=== PATIENT | female | born 1985 | race Caucasian/White ===

== ENCOUNTER → 2018-07-27 11:59 | Outpatient (CLI) | payer OTHER, SELFPAY ==
[2018-07-27 10:51] VITALS: BMI 33.5
[2018-07-27 12:37] LABS: Absolute Neutrophil Count 6.1 X10^3/uL (2.0-7.7); Basophil# 0.03 X10^3/uL; Basophil% 0.3 % (0-1); Eosinophil# 0.08 X10^3/uL; Eosinophils% 0.9 % (0-5); Hemoglobin 14.1 g/dl (12.0-15.0); Lymphocyte % 21.9 % (19-41); Mean Corp Hgb Conc 33.6 g/gl (32-36); Mean Corpuscular Hgb 28.4 pg (27.0-32.0); Mean Corpuscular Volume 84.7 fL (81-99); Mean Platelet Vol. 8.5 fl (6.2-12.0); Monocyte# 0.51 X10^3/uL; Monocyte% 5.9 % (0-10); Neutrophil # 6.14 X10^3/uL (2.7-7.7); Neutrophil % 70.9 % (47-70); POSITIVE COUNT NO; POSITIVE DIFFERENTIAL NO; POSITIVE MORPHOLOGY NO; Platelet Count 374 K/mm3 (150-450); RBC Distribution Width CV 12.4 % (11.6-14.6); Red Blood Count 4.96 M/mm3 (4.2-5.4); White Blood Count 8.7 K/mm3 (4.4-11.0)
[2018-07-27 12:46] LABS: Protein, Urine (Random) 12.8 mg/dL (<11.9); Protein:Creat Ratio 149 mg/g CRE (0-200)
[2018-07-27 13:06] LABS: ALB/GLOB Ratio 0.8 RATIO (0.9-2.4); AST(SGOT) 12 U/L (15-37); Alanine Aminotransfer ALT/SGPT 18 U/L (13-56); Albumin, Serum 3.6 g/dL (3.2-5.0); Alkaline Phosphatase 87 U/L (45-117); Anion Gap 7 (5-15); BUN 9 mg/dL (7-18); BUN/Creat Ratio 15.8 RATIO (10-20); Calcium,Total 8.7 mg/dL (8.5-10.1); Chloride 105 mmol/L (98-107); Creatinine, Serum 0.57 mg/dL (0.55-1.02); EST Glomerular Filtration Rate 131 mL/min (>60); Est Glom Filt Rate - Afr Amer 159 mL/min (>60); Globulin 4.6 g/dL (2.2-4.2); Glucose 76 mg/dL (74-106); Potassium 3.7 mmol/L (3.5-5.1); Protein, Total 8.2 g/dL (6.4-8.2); Sodium Level 137 mmol/L (136-145)
[2018-07-27 13:53] LABS: HIV - WCH Non-Reactive (Nonreactive); Rubella IgG 316.9 IU/mL
[2018-07-27 15:28] LABS: Chlamydia Trachomatis by PCR Negative (Negative); Neisserai gonorrhoeae by PCR Negative (Negative); Probe Check PASS; Sample Adequacy Control PASS; Specimen Processing Control PASS
[2018-07-27 17:34] LABS: Chlamydia Trachomatis by PCR Negative (Negative); Neisserai gonorrhoeae by PCR Negative (Negative); Probe Check PASS; Sample Adequacy Control PASS; Specimen Processing Control PASS
[2018-07-28 14:39] LABS: HEPATITIS B SURFACE AG Negative (Negative)
[2018-07-29 03:31] LABS: Rapid Plasmin Reagin (RPR) NONREACTIVE (NONREACTIVE)
[2018-07-30 20:19] LABS: HPV APTIMA, High Risk Negative (Negative)
== END ==
PROVIDERS: Family Provider Nurse Practitioner; PCP Nurse Practitioner; Referring Provider Nurse Practitioner Women's Health; Visit Provider Nurse Practitioner Women's Health
DX: O16.9 Unspecified maternal hypertension, unspecified trimester (principal); Z12.4 Encounter for screening for malignant neoplasm of cervix; Z3A.00 Weeks of gestation of pregnancy not specified
CPT/HCPCS: 36415; 80053; 82570; 84156; 85025; 86592; 86703; 86762; 86850; 86900; 87086; 87340; 87491; 87591; 87624; 88175; G0145

== ENCOUNTER → 2018-08-05 15:56 | Outpatient (CLI) | payer OTHER, SELFPAY ==
[2018-07-27 10:51] VITALS: BMI 33.5
--- NOTE | 2018-08-05 16:00 | EKG12_ITS ---
Test Reason : FAMILY HX Blood Pressure : / mmHG Vent. Rate : 080 BPM Atrial Rate : 080 BPM P-R Int : 132 ms QRS Dur : 078 ms QT Int : 382 ms P-R-T Axes : 032 023 019 degrees QTc Int : 440 ms Normal sinus rhythm Normal ECG Confirmed by LEON TIRADO, YAHAIRA ([id number]), publication editor FAY GOODE ([id number]) on 08/08/2018 9:40:48 AM Referred By: Yary Mcpherson Confirmed By:YAHAIRA QUINTERO MD
--- OUTSIDE RECORDS SUMMARY | 2018-10-10 05:40 | XMS RPT_ITS ---
:1985 Author Organization OHIP Care Team Providers Name Role Phone Yary Mcpherson Attending Unavailable Yary Mcpherson Attending Unavailable Yary Mcpherson Referring Unavailable Peterson, Nakia LOAN OPERATIONS MANAGER-C Primary Care Unavailable Yary Mcpherson Attending Unavailable Yary Mcpherson Referring Unavailable Peterson, Nakia LOAN OPERATIONS MANAGER-C Primary Care Unavailable Demetrius Mason Attending Unavailable KyYary martínez Referring Unavailable Peterson, Nakia LOAN OPERATIONS MANAGER-C Primary Care Unavailable Yary Mcpherson Consulting Unavailable PROBLEMS PROBLEMS DATE TYPE CONDITION / CODE ATTENDING STATUS SOURCE 08/08/2018 Unknown I10 - Essential IsabellaSerafin mccormackril Active [facility] (primary) Community hypertension / Hospital I10(ICD-10) Repository 08/08/2018 Unknown Z34.00 - Encounter Demetrius Mason Active [facility] for supervision of [facility] normal first Hospital , Repository unspecified trimester / Z34.00(ICD-10) 07/27/2018 Unknown Z34.90 - Encounter Yary Mcpherson Active [place] for supervision of [facility] normal , Hospital unspecified, Repository unspecified trimester / Z34.90(ICD-10) PROCEDURES PROCEDURES No Procedure Records FoundRESULTS RESULTS 12 LEAD ELECTROCARDIOGRAM Observed: 08/08/2018 Status: F Source: [place] 9:41 AM [facility] REPOSITORY [facility] Cardiovascular Services [address] [place] [address] 12 Lead EKG 08/05/18 1605 MR#: [id number] Acct: [id number] Name: KATIE BUSBY Rep #: [id number] : 1985 33 From: Demetrius Mason MD Attending Dr: Yary Mcpherson NP Status: REG CLI Ordering Dr: Yary Mcpherson LOAN OPERATIONS MANAGER-C Date: 08/05/18 Location: [facility] Sex: F C Admitted: Test Reason : FAMILY HX Blood Pressure : / mmHG Vent. Rate : 080 BPM Atrial Rate : 080 BPM P-R Int : 132 ms QRS Dur : 078 ms QT Int : 382 ms P-R-T Axes : 032 023 019 degrees QTc Int : 440 ms Normal sinus rhythm Normal ECG Confirmed by DEMETRIUS MASON MD ([id number]), graphics editor FAY GOODE ([id number]) on 08/08/2018 9:40:48 AM Referred By: Yary Mcpherson Confirmed By:DEMETRIUS MASON MD 08/08/18 0940 Date Demetrius Mason MD CC: LOAN OPERATIONS MANAGER Nakia Peterson; MIGDALIA Mcpherson Signed INDUSTRIAL MECHANIC OFFICE VISIT Observed: 07/27/2018 Status: F Source: [place] REPORT 12:54 PM [facility] REPOSITORY [facility] [place] [address] [place] [address] OFFICE VISIT Date of Service: 07/27/18 MR#: [id number] Acct: [id number] Name: KATIE BUSBY Rep #: [id number] : 1985 Provider: MIGDALIA Mcpherson Age/Sex: 33/F [place] [facility] [place]: Signed Intake Vital Signs07/27/18 Height 5 ft 2 in 07/27/18 Weight: 183 lb 4 oz 07/27/18 Body Mass Index (BMI) 33.5 07/27/18 Blood Pressure 110/68 Intake Visit Reasons: NOB - LMP 05/19 Drilling Superintendent Required: No Accompanied by: friend Is patient in pain?: No Allergies No Known Allergies Allergy (Verified 07/27/18 10:42) Medications blood pressure monitor kit See Dose Instructions .ROUTE .MEDSUPPLY #1 ea 07/27/18 [Rx Confirmed 07/27/18] docosahexanoic acid 200 mg capsule mg PO cap 07/27/18 [History Confirmed 07/27/18] Last Menstral Period: 05/19/18 Zika: Zika virus screening: Negative : No PFSH PFSH Medical History Fibromyalgia (Chronic) IBS (irritable bowel syndrome) (Chronic) Psoriatic arthritis (Chronic) Surgical History H/O colonoscopy (Resolved) H/O esophagogastroduodenoscopy (Resolved) [place] teeth extracted (Resolved) Family History Sister CVA (cerebral vascular accident) Mother Myocardial infarction Father Irregular heart rate Social History Smoking Status: Light Smoker (<10/day) alcohol intake: never substance use type: does not use caffeine: Yes what type of physical activity do you participate in: none seatbelt use: always do you feel safe at home: Yes additional social history: - [employer] 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 Past history of hypertension and previously on lisinopril. Also history of fibromyalgia and psoriatic arthritis. Stopped all meds in January to attempt . OB Visit JENN Calculator Estimated Delivery Date 02/23/19 Based on LMP (certain) 05/19/18 Current WG 9w 6d Number 1 Expected Delivery Route/Plan Specific Issue/Plans flu vaccine: declines tdap vaccine: [] rhogam: [] LARC form signed: [] labor support person: Will pain management: [] cut cord/dad catch: [] : [] PP control planned: [] special requests: [] Initial Weight: Not Recorded Date Weight BP Urine PrFHR FuHt Pres MoCTX DilationFetal StVisit NoProviderComments E ot v te GA G Effac lucose ed Menstrual History Last Menstral Period: 05/19/18 Reported LMP: definite Normal amount/duration: Yes On hormonal BC at conception: No hCG+: 06/26/18 Antepartum Record Genetic Screening: Congenital Heart Defect: Other, Neural Tube Defect: Other, Hemoglobinopathy Or Carrier: Other, Cystic Fibrosis: Other, Chromosome Abnormality: Other, Hemophilia: Other, Intellectual Disability/Autism: Patient (half brother autistic), Recurrent Loss/Stillbirth: Other, Other Structural Defect: Other, Other Genetic Disease: Other, Maternal Metabolic Disorder: Other Infection History: Live with someone with TB or Exposed to TB: No, Patient or Partner has history of Genital Herpes: No, Rash or Viral illness since last mentrual period: No, Prior GBS-Infected child: No, History of STD: No, HIV Infection: No, History of Hepatitis: No, Recent travel outside of [place]: No, Concern for Hep exposure: No, Varicella immune: Yes (had vaccine) Medical History Medical History: Positive: Hypertension (no meds currently. Has in past), Auto-immune disorder (Psoriatic arthritis, fibromyagia), Depression/ depression (depression-no med currently), Negative: Diabetes, Heart disease, Kidney disease/UTI, Neurologic/epilepsy, Psychiatric, Hepatitis/liver disease, Varicosities/phlebitis, Thyroid dysfunction, Trauma/domestic violence, History of blood transfusions, D (Rh) Sensitized, Pulmonary (e.g.,TB,Asthma), Seasonal allergies, Drug/latex allergies/reactions, Breast, Real Time Analyst surgery, Operations/hospitalizations, Anesthetic complications, History of abnormal pap, Uterine anomaly/patricia, Infertility, Anti-retroviral treatment, Relevant family history, Other ROS Const Reports as per HPI Card Denies chest pain, Denies shortness of breath Resp Denies shortness of breath GI Denies change in stools Denies difficulty urinating, Denies abnormal vaginal bleeding, Denies vaginal odor, Denies vaginal itching, Denies vaginal discharge Exam Const General: cooperative, healthy appearing, well developed Nutritional Appearance: average body habitus, well nourished Orientation: oriented x3 Other: TV US per Dr. Isabel with CRL 23.6mm consistent with LMP JENN of 02/23/19. FHT 189 Neck Neck: normal visual inspection Neck mass: No Thyroid: thyroid normal Chest Chest palpation AND inspection: normal inspection of the chest Breast inspection: normal inspection of the breasts, normal inspection of the axillae Resp Effort AND Inspection: normal respiratory effort GI Inspection: normal to inspection Palpation: soft, nontender, no masses External Female Exam: normal external appearance, normal appearance of the urethra Urethra: normal appearance of the urethra Speculum Exam - Vagina: normal appearance of the vagina, normal vaginal discharge Speculum Exam - Cervix: normal appearance of the cervix, closed cervix, other (thin prep pap with reflex HPV, GCC collected) Bimanual Exam- Vagina AND Uterus: normal bimanual exam, uterine shape normal, uterine size normal (10 weeks) Bimanual Exam- Adnexa, other: normal adnexae, no adnexal masses, adnexae non-tender Skin General: no rashes or lesions noted, turgor normal Assessment AND Plan Problems 1. Encounter for supervision of normal first in first trimester Z34.01 Grav 1/0 JENN 02/23/19 Spouse Will 2. 9 weeks gestation of Z3A.09 considering NIPT, 3. Essential hypertension I10 Baseline EKG,CMP, Urine P/C ratio; daily BP-call >140/90 4. Tobacco smoking affecting in first trimester O99.331 Plan Patient oriented to practice and discussed care expectations and screenings. ACOG book offered to patient. labs plus CMP, urine protein creatinine ratio, EKG Daily home BP checks and call if >140/90 Counseled on stop smoking. Has decreased from 1 ppd to 5 cig per day. Genetic screening offered to patient and patient chose: checking with insurance RTO 2-[address] Isabel Orders Orders: Medications New: Coding Level of Care Code Off vis,new,level 4 Diagnoses Encounter for supervision of normal first in first trimester Z34.01 Trimester: first trimester 9 weeks gestation of Z3A.09 Weeks of gestation: 9 weeks Essential hypertension I10 Hypertension type: essential hypertension Tobacco smoking affecting in first trimester O99.331 Trimester: first trimester 07/27/18 1254 <Electronically signed by Yary LUEVANO> Date Yary LUEVANO Cosigner Signature: Date (if applicable) CC: PROTEIN+CREATININE Collected: Status: F Source: [place] RATIO,URINE 07/27/2018 12:22 PM [facility] REPOSITORY TYPE CODE TESTS RESULT OUT OF RANGE REFERENCE UNITS LAB L501.1200 NO RANGE EST. mg/dL Normal UR CREAT 85.90 LAB L501.1930 <11.9 mg/dL High 12.8 PROTEIN,UR.R AN. LAB L501.1940 0-200 mg/g CRE Normal PROT:CRE 149 RATIO Performed By: #### L501.0900 #### [facility] [address] [place], [address] CT/NG WCH BY PCR Collected: 07/27/2018 Status: F Source: [place] 12:22 PM [facility] REPOSITORY TYPE CODE TESTS RESULT OUT OF RANGE REFERENCE UNITS LAB L8200.2100 Negative Normal Chlam Negative Trac PCR LAB L8200.2200 Negative Normal NG by Negative PCR Performed By: #### L8200.2000 #### [facility] [address] [place], [address] Observed: 07/27/2018 Status: F Source: [place] CULTURE, URINE 12:22 PM [facility] REPOSITORY Urine Culture Culture exhibits no growth. Performed By: #### M100.0650 #### [facility] [address] [place], [address] CBC W/DIFF, AUTOMATED Collected: 07/27/2018 Status: F Source: [place] 12:07 PM [facility] REPOSITORY TYPE CODE TESTS RESULT OUT OF RANGE REFERENCE UNITS LAB L100.1000 4.4-11.0 K/mm3 Normal WBC 8.7 LAB L100.1200 4.2-5.4 M/mm3 Normal RBC 4.96 LAB L100.1300 12.0-15.0 g/dl Normal HGB 14.1 LAB L100.1400 37-47 % Normal HCT 42.0 LAB L100.1500 81-99 fL Normal MCV 84.7 LAB L100.1600 27.0-32.0 pg Normal MCH 28.4 LAB L100.1700 32-36 g/gl Normal MCHC 33.6 LAB L100.1810 11.6-14.6 % Normal RDW CV 12.4 LAB L100.1820 35.1-43.9 fl Normal RDW SD 38.0 LAB L100.1900 150-450 K/mm3 Normal PLT 374 LAB L100.2000 6.2-12.0 fl Normal MPV 8.5 LAB L100.2100 47-70 % High NEUT% 70.9 LAB L100.2200 19-41 % Normal LY% 21.9 LAB L100.2300 0-10 % Normal MONO% 5.9 LAB L100.2400 0-5 % Normal EO% 0.9 LAB L100.2500 0-1 % Normal BASO% 0.3 LAB L100.2550 0.0-0.9 % Normal IM GRAN % 0.100 Result Comment: IG% - Immature Granulocytes (promyelocytes, myelocytes and metamyelocytes) > 1% indicates that a LEFT SHIFT is Present. LAB L100.2620 2.0-7.7 X10 3/uL Normal Absolute Neut 6.1 LAB L100.2720 0.83-4.51 X10 3/ul Normal Absolute Lymph 1.90 Performed By: #### L100.0100 #### [facility] [address] [place], [address] COMPREHENSIVE METABOLIC Collected: 07/27/2018 Status: F Source: [place] [facility] 12:07 PM [facility] REPOSITORY TYPE CODE TESTS RESULT OUT OF RANGE REFERENCE UNITS LAB L501.0100 74-106 mg/dL Normal GLU 76 Result Comment: Please note revised GLUCOSE reference range effective 2017. LAB L501.1000 7-18 mg/dL Normal BUN 9 LAB L501.1100 0.55-1.02 mg/dL Normal CREAT,SERUM 0.57 Result Comment: The validity of the calculated GFR AND GFRAA in patients over 70 years has not been determined. Clinical correlation is essential. LAB L501.1110 >60 mL/min Normal EST GFR 131 Result Comment: Non- GFR Calc LAB L501.1115 >60 mL/min Normal EST GFR - AA 159 Result Comment: GFR Calc LAB L501.1300 10-20 RATIO Normal BUN/CRE 15.8 LAB L501.1500 6.4-8.2 g/dL T Normal PROT 8.2 LAB L501.1800 3.2-5.0 g/dL Normal ALB 3.6 LAB L501.1950 2.2-4.2 g/dL High GLOB 4.6 LAB L501.2000 0.9-2.4 RATIO Low A/G 0.8 LAB L501.2200 8.5-10.1 mg/dL CA Normal 8.7 LAB L501.4100 15-37 U/L Low AST 12 LAB L501.4305 45-117 U/L Normal ALK P 87 LAB L501.4405 13-56 U/L Normal ALT 18 LAB L501.4600 0.20-1.00 mg/dL Low T BILI 0.10 LAB L501.5300 136-145 mmol/L NA Normal 137 LAB L501.5600 3.5-5.1 mmol/L K Normal 3.7 LAB L501.5900 98-107 mmol/L CL Normal 105 LAB L501.6100 21.0-32.0 mmol/L Normal CO2 25.0 LAB L501.6200 5-15 Normal GAP 7 Performed By: #### L500.4050 #### [facility] [address] [place], [place], [address] RUBELLA IGG Collected: 07/27/2018 Status: F Source: [place] 12:07 PM [facility] REPOSITORY TYPE CODE TESTS RESULT OUT OF RANGE REFERENCE UNITS LAB L509.4000 IU/mL Normal Rubella IgG 316.9 Result Comment: Antibody results Interpretation of Immune Status < 5 IU/ml Presumed Non-immune 5 - < 10 IU/ml Equivocal > or = 10 IU/ml Presumed Immune Performed By: #### L509.4000, L3890.6005 #### [facility] [address] [place], [address] HIV - WCH Collected: 07/27/2018 Status: F Source: [place] 12:07 PM [facility] REPOSITORY TYPE CODE TESTS RESULT OUT OF RANGE REFERENCE UNITS LAB L3890.6005 Nonreactive Normal HIV - WCH Non-Reactive Performed By: #### L509.4000, L3890.6005 #### [facility] [address] [facility] [address] TYPE AND SCREEN Collected: 07/27/2018 Status: F Source: [place] 12:07 PM [facility] REPOSITORY Order Comment: Reason for Type AND Screen/Red Cells: TYPE CODE TESTS RESULT OUT OF RANGE REFERENCE UNITS LAB B10.0800 O Normal BLOOD TYPE GEL POSITIVE LAB B100.4000 Normal Antibody NEGATIVE Screen Performed By: #### B101.7450 #### [facility] [place], [place], [address] HEPATITIS B SURFACE Collected: 07/27/2018 Status: F Source: [place] AG 12:07 PM [facility] REPOSITORY TYPE CODE TESTS RESULT OUT OF RANGE REFERENCE UNITS LAB L3100.0400 Negative Normal HB Negative SURF AG Result Comment: Performed at: - [facility] [id number] Oil Treater: Martir Zhu PhD, Phone: [phone] Performed By: #### L3100.0390 #### [facility] (refer to report for specific site) refer to report for address and phone number RAPID PLASMIN REAGIN Collected: 07/27/2018 Status: F Source: [place] (RPR) 12:07 PM [facility] REPOSITORY TYPE CODE TESTS RESULT OUT OF REFERENCE UNITS RANGE LAB L700.5000 NONREACTIVE NONREACTIVE Normal RPR Performed By: #### L700.5000 #### [facility] [place], [address] CT/NG WCH BY PCR Collected: 07/27/2018 Status: F Source: [place] 10:00 AM [facility] REPOSITORY TYPE CODE TESTS RESULT OUT OF RANGE REFERENCE UNITS LAB L8200.2100 Negative Normal Chlam Negative Trac PCR LAB L8200.2200 Negative Normal NG by Negative PCR Performed By: #### L8200.2000 #### [facility] [address] [place], [address] Observed: 07/27/2018 Status: P Source: [place] CULTURE, URINE 10:00 AM [facility] REPOSITORY Urine Culture Culture exhibits no growth. Performed By: #### M100.0650 #### [facility] [address] [place], [address] PAP IG HPV APTIMA Collected: 07/27/2018 Status: F Source: [place] 16/18,45 10:00 AM [facility] REPOSITORY Order Comment: CYTOLOGY INFORMATION: - CLINICAL INFORMATION: - DATE LMP/MENOPAUSE: - COLLECTION VIAL: Thin Prep Vial - SIDE LASTER TACK SOURCE: CERVICAL - COLLECTION TECHNIQUE: BRUSH/SPATULA Specimen Comment: [id number] Specimen Comment: Source.............Cervix Specimen Comment: Other.............. Specimen Comment: No. of containers..01 ThinPrep Vial TYPE CODE TESTS RESULT OUT OF RANGE REFERENCE UNITS LAB L7400.0800 . Normal DIAGN Comment Result Comment: NEGATIVE FOR INTRAEPITHELIAL LESION AND MALIGNANCY. LAB L7400.0900 . Normal ADEQ Comment Result Comment: Satisfactory for evaluation. No endocervical component is identified. An endocervical component is not commonly seen in the patient. LAB L7400.1400 . Normal PERFORM Comment Result Comment: Whitney Brown, [facility] (ASCP) LAB L7400.2575 . Normal TEST METHOD Comment Result Comment: This liquid based ThinPrep(R) pap test was screened with the use of an image guided system. LAB L7400.2600 . Normal . COMM LAB L7400.2700 . Normal PAPSMR Comment Result Comment: The Pap smear is a screening test designed to aid in the detection of premalignant and malignant conditions of the uterine cervix. It is not a diagnostic procedure and should not be used as the sole means of detecting cervical cancer. Both false-positive and false-negative reports do occur. LAB L7400.2760 Negative Normal HPV APTIMA, Negative HR Result Comment: This test detects fourteen high-risk HPV types (16/18/31/33/35/39/45/ 51/52/56/58/59/66/68) without differentiation. Performed at: - [facility] [id number] Oil Treater: Blanca Ron MD, Phone: [phone] Performed at: = - [facility] [address] [id number] Oil Treater: Blanca Ron MD, Phone: [phone] Performed By: #### L7400.0280 #### [facility] (refer to report for specific site) refer to report for address and phone number ALLERGIES ALLERGIES DATE TYPE / CODE NAME / CODE REACTION SEVERITY SOURCE 07/27/2018 Drug No Known Unknown [facility] Allergy/4160 Allergies/F00 [facility] [address]90(SNOMED 9946731(RXNOR Repository CT) M) ENCOUNTERS ENCOUNTERS ADMIT/DISCHARGE ACCOUNT ADMITTING ENCOUNTER LOCATION SOURCE NUMBER CLASS 08/05/2018 [id number] Ambulatory BMSBuilding:B [place] 4 MS.CF[facility] Repository 08/05/2018 [id number] Ambulatory [facility] [place] [address] [facility] ing:[facility] Repository 07/27/2018 [id number] Ambulatory [facility] [place] [facility] ing:PAVLAB Repository 07/27/2018/ [id number] Ambulatory BMSBuilding:B [facility] 9 1 [facility] Repository PAYERS PAYERS ENCOUNTER GUARANTOR PAYER SUBSCRIBER SOURCE 08/05/2018 KATIE Braxton [id number] Insurance:MEDICAL KLEINDOB: [facility] [id number]: Repository [id number]: [phone] [id number] [phone] () Date:[id number] [address] [place], [place] [address]WP: 08/05/2018 Secondary NOT GIVENUNK [facility] Insurance:SELF PAY [facility] Number: Effective Repository Date:2018-08-05 08/05/2018 KATIE Slaughter Primary KATHY Braxton [id number] Insurance:MEDICAL KLEINDOB: [facility] [id number] Number: Repository [id number]: 330 [id number] [phone] (HP) Date:4474-07-59HT [address] [address]CW: 08/05/2018 Secondary NOT GIVENUNK [place] Insurance:SELF PAY [facility] Number: Effective Repository Date:2018-08-05 07/27/2018 KATIE Slaughter Primary KATHY Braxton [id number] Insurance:MEDICAL KLEINDOB: [facility] [id number] Number: Repository [id number]: 330 [id number] [phone] () Date:[id number] [address] [address]WW: 07/27/2018 Secondary NOT GIVENUNK [place] Insurance:SELF PAY [facility] Number: Effective Repository Date:2018-07-27 07/27/2018 KATIE Slaughter Primary KATHY Braxton [id number] Insurance:MEDICAL KLEINDOB: [facility] [id number] Number: Repository [id number]: 330 [id number] [phone] (HP) Date:4232-44-00OW [address] [address]JD: 07/27/2018 Secondary NOT GIVENUNK [place] Insurance:SELF PAY [facility] Number: Effective Repository Date:2018-07-27
== END ==
PROVIDERS: Family Provider Nurse Practitioner; PCP Nurse Practitioner; Referring Provider Nurse Practitioner Women's Health; Visit Provider Nurse Practitioner Women's Health
DX: O16.9 Unspecified maternal hypertension, unspecified trimester (principal); Z3A.00 Weeks of gestation of pregnancy not specified
CPT/HCPCS: 93005

== ENCOUNTER → 2018-12-02 15:37 | Outpatient (CLI) | payer OTHER, SELFPAY ==
[2018-12-02 15:25] VITALS: BMI 34.0
[2018-12-02 16:23] LABS: Absolute Lymphocyte Count 1.47 X10^3/ul (0.83-4.51); Absolute Neutrophil Count 5.6 X10^3/uL (2.0-7.7); Basophil# 0.01 X10^3/uL; Basophil% 0.1 % (0-1); Eosinophil# 0.08 X10^3/uL; Hematocrit 34.8 % (37-47); Hemoglobin 11.7 g/dl (12.0-15.0); Lymphocyte # 1.47 X10^3/ul (4.0); Lymphocyte % 19.2 % (19-41); Mean Corp Hgb Conc 33.6 g/gl (32-36); Mean Corpuscular Volume 83.3 fL (81-99); Mean Platelet Vol. 8.5 fl (6.2-12.0); Monocyte# 0.51 X10^3/uL; Monocyte% 6.7 % (0-10); Neutrophil # 5.57 X10^3/uL (2.7-7.7); Neutrophil % 72.9 % (47-70); Platelet Count 355 K/mm3 (150-450); RBC Distribution Width CV 13.2 % (11.6-14.6); RBC Distribution Width SD 39.4 fl (35.1-43.9); Red Blood Count 4.18 M/mm3 (4.2-5.4); White Blood Count 7.7 K/mm3 (4.4-11.0)
[2018-12-02 16:27] LABS: POSITIVE COUNT NO; POSITIVE DIFFERENTIAL NO; POSITIVE MORPHOLOGY NO
[2018-12-02 17:19] LABS: Glucose Challenge Gest 1H 50g 131 mg/dL (70-140)
== END ==
PROVIDERS: Family Provider Nurse Practitioner; PCP Nurse Practitioner; Referring Provider Obstetrics & Gynecology; Visit Provider Obstetrics & Gynecology
DX: Z34.93 Encounter for supervision of normal pregnancy, unspecified, third trimester (principal)
CPT/HCPCS: 36415; 82950; 85025

== ENCOUNTER 2019-01-04 11:20 | Inpatient (IN) | payer OTHER, SELFPAY ==
[2019-01-04 11:23] VITALS: BMI 34.0
[2019-01-04 11:28] VITALS: BMI 36.2
[2019-01-04 11:57] LABS: Protein:Creat Ratio 217 mg/g CRE (0-200)
[2019-01-04 12:14] LABS: Hematocrit 37.4 % (37-47); Hemoglobin 12.7 g/dl (12.0-15.0); Mean Corpuscular Volume 82.4 fL (81-99); Mean Platelet Vol. 9.6 fl (6.2-12.0); Platelet Count 325 K/mm3 (150-450); RBC Distribution Width CV 13.7 % (11.6-14.6); RBC Distribution Width SD 39.5 fl (35.1-43.9); Red Blood Count 4.54 M/mm3 (4.2-5.4); White Blood Count 10.2 K/mm3 (4.4-11.0)
[2019-01-04 12:17] LABS: Scan Indicated on CBC? Y/N NO
[2019-01-04 12:27] LABS: Prothrombin Time (Protime)PT. 12.6 SECONDS (11.7-14.9)
[2019-01-04 12:30] LABS: AST(SGOT) 19 U/L (15-37); Alanine Aminotransfer ALT/SGPT 19 U/L (13-56); Creatinine, Serum 0.62 mg/dL (0.55-1.02); EST Glomerular Filtration Rate 118 mL/min (>60); Est Glom Filt Rate - Afr Amer 143 mL/min (>60); Estimated Creatinine Clearance 103.98 ml/min; Uric Acid 5.3 mg/dL (2.6-6.0)
[2019-01-04 12:42] LABS: Partial Thromboplast Time 29.7 Seconds (24.1-36.2)
[2019-01-04] MEDS: Betamethasone/Betamethasone 30 MG/5 ML Vial 12 MG IM (13:10)
[2019-01-04] MEDS: Labetalol 200 MG Tablet PO ×2 (13:15→22:09)
[2019-01-04] MEDS: Magnesium Sulfate 20 GM/500 ML BAG IV ×2 (13:33→22:16)
[2019-01-04 15:03] LABS: Group B Strep DNA By PCR Negative (Negative); Internal Control PASS; Probe Check PASS; Specimen Processing Control PASS
--- NOTE | 2019-01-04 17:36 | HP.PCM_ITS ---
- Problem List (1) Severe preeclampsia Status: Acute (2) Supervision of high risk , antepartum Status: Acute Comment: PRR JENN 02/23/19 boy Phi Spouse Will (3) Anxiety Status: Acute Comment: declined meds, encouraged counseling (4) Tobacco smoking affecting Status: Acute Qualifiers: (5) Psoriatic arthritis Status: Acute (6) Hypertension Status: Chronic Qualifiers: Comment: Baseline labs nl. home bp monitoring, discussed and plan growth us at 32 weeks and weekly nsts from 36 weeks on and weekly mat 36 weeks on. deliver at 39 weeks. change if elevated bps. 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 Anatomy US normal History Date of Admission: 01/04/19 Final JENN: 02/23/19 Gestational age: 32 Weeks and 6 Days History of this : This is a 33 year-old, , at 32w6d weeks gestational age presents with severely elevated blood pressures. Patient has a history of chronic hypertension that has not require any medical intervention. Blood pressures have been normal throughout the and then today at her routine visit she had severely elevated blood pressures. Patient was admitted to labor and delivery and several pressures were taken and noted to be severely elevated and IV labetalol was given 20, 40, and then 80 mg which then controlled blood pressures. 200 mg p.o. labetalol were given for baseline management. All labs are within normal limits and urine is negative for protein.. Medical History: Medical History (Last Reviewed 01/04/19 @ 11:05 by Irene Christiansen) Fibromyalgia M79.7 IBS (irritable bowel syndrome) K58.9 Psoriatic arthritis L40.50 Surgical History: Surgical History (Last Reviewed 01/04/19 @ 11:05 by Irene Christiansen) H/O colonoscopy Z98.890 H/O esophagogastroduodenoscopy Z98.890 [place] teeth extracted K08.409 Allergies No Known Allergies Allergy (Verified 01/04/19 11:04) Home Medications: Home Medications blood pressure monitor kit See Dose Instructions .ROUTE .MEDSUPPLY #1 ea 0 07/27/18 docosahexanoic acid 200 mg capsule mg PO cap 07/27/18 citalopram 20 mg tablet 20 mg PO DAILY #30 tab 09/16/18 [place] 1 tab PO DAILY 01/04/19 Smoking Status: Light Smoker (<10/day) Alcohol: None Number of Fetus(es): 1 Heart Tracin moderate variability reactive cat I tracing toco no contractions History Past Pregnancies: Past Pregnancies Delivery Date Name GA/Weeks Outcome Route Weight Gender Labor Length Anesthesia Delivery Location Provider FOB Labs: Mom's Current Diagnoses Essential (primary) hypertension 01/04/19 Mom[facility] Microbiology 01/04/19 Unknown Genital vaginal Group B Streptococcus Culture - Pending Mom[facility] Labs & Results 01/04/19 01/04/19 01/04/19 11:36 11:55 11:55 WBC 10.2 RBC 4.54 Hgb 12.7 Hct 37.4 MCV 82.4 MCH 28.0 MCHC 34.0 RDW 13.7 RDW Differential 39.5 Plt Count 325 MPV 9.6 PT 12.6 INR 1.0 APTT 29.7 Creatinine Estim Creat Clear Calc Est GFR (MDRD) Af Amer Est GFR (MDRD) Non-Af Uric Acid AST ALT U Random Total Protein 33.0 H Urine Creatinine 152.00 Protein/Creatinin Ratio 217 H Group B Strep DNA Specimen Comment 01/04/19 01/04/19 11:55 12:23 WBC RBC Hgb Hct MCV MCH MCHC RDW RDW Differential Plt Count MPV PT INR APTT Creatinine 0.62 Estim Creat Clear Calc 103.98 Est GFR (MDRD) Af Amer 143 Est GFR (MDRD) Non-Af 118 Uric Acid 5.3 AST 19 ALT 19 U Random Total Protein Urine Creatinine Protein/Creatinin Ratio Group B Strep DNA Negative Specimen Comment Not Reportable Social History Smoking Status Light Smoker (<10/day) Review of Systems Constitutional: Denies: Fever, Malaise Eyes: Denies: Blurred vision, Vision Change HEENT: Denies: Head Aches, Visual Changes Cardiovascular: Denies: Chest Pain, Palpitations Respiratory: Denies: Cough, Shortness of Breath, Wheezing Gastrointestinal: Denies: Abdominal Pain, Diarrhea, Nausea, Vomiting Genitourinary: Denies: Dysuria, Hematuria Musculoskeletal: Denies: Joint Pain, Muscle pain Skin: Denies: Lesions, Rash Neurological: Denies: Blurred vision, Focal weakness, Headaches Psychiatric: Denies: Anxiety, Depression Endocrine: Denies: Heat/ Cold Intolerance Hematologic/ Lymphatic: Denies: Easy Bruising, Easy Bleeding Physical Exam General: Alert, Cooperative, No apparent distress HEENT: Atraumatic, Normocephalic. Negative for: Thyromegaly, Lymphadenopathy Cardiovascular: Regular rate Lungs: Normal air movement Abdomen: Soft, Non Tender, Gravid Neurological: Deep Tendon Reflexes 2+/4 and Symmetrical, Neuro grossly intact. Negative for: Clonus [employer]: Normal external genitalia. Negative for: Vulvar lesions Estimated gestational size: Appropriate for gestational size Assessment/Plan All Active Problems (Last Reviewed 01/04/19 @ 11:05 by Irene Christiansen) Severe preeclampsia (Acute) Supervision of high risk , antepartum (Acute) Anxiety (Acute) Tobacco smoking affecting (Acute) Psoriatic arthritis (Acute) Fibromyalgia (Acute) (Acute) Electrocardiogram showing normal sinus rhythm (Resolved) Supervision of normal first (Resolved) This is a 33 year-old, at 32w6d weeks gestational age with severe preeclampsia or possible exacerbation of chronic hypertension 1. Continue labetalol 200 mg twice daily and magnesium 2 g an hour, monitor blood pressures and will discontinue magnesium after 48 hours. Follow daily labs 2. Prematurity?status post Celestone today and will repeat dose tomorrow. 3. Growth ultrasound ordered for tomorrow
--- NOTE | 2019-01-05 05:00 | NURSING ---
24hr urine started.
[2019-01-05 05:25] LABS: Hemoglobin 11.4 g/dl (12.0-15.0); Mean Corp Hgb Conc 33.5 g/gl (32-36); Mean Corpuscular Hgb 27.7 pg (27.0-32.0); Mean Corpuscular Volume 82.5 fL (81-99); Mean Platelet Vol. 9.9 fl (6.2-12.0); Platelet Count 312 K/mm3 (150-450); RBC Distribution Width CV 13.5 % (11.6-14.6); RBC Distribution Width SD 39.2 fl (35.1-43.9); Red Blood Count 4.12 M/mm3 (4.2-5.4); White Blood Count 11.5 K/mm3 (4.4-11.0)
[2019-01-05 05:27] LABS: Scan Indicated on CBC? Y/N NO
[2019-01-05 05:44] LABS: ALB/GLOB Ratio 0.5 RATIO (0.9-2.4); AST(SGOT) 18 U/L (15-37); Alanine Aminotransfer ALT/SGPT 18 U/L (13-56); Albumin, Serum 2.3 g/dL (3.2-5.0); Alkaline Phosphatase 111 U/L (45-117); Anion Gap 12 (5-15); BUN 9 mg/dL (7-18); Calcium,Total 8.1 mg/dL (8.5-10.1); Chloride 104 mmol/L (98-107); Creatinine, Serum 0.75 mg/dL (0.55-1.02); EST Glomerular Filtration Rate 96 mL/min (>60); Est Glom Filt Rate - Afr Amer 116 mL/min (>60); Estimated Creatinine Clearance 85.96 ml/min; Globulin 4.6 g/dL (2.2-4.2); Glucose 107 mg/dL (74-106); Potassium 4.6 mmol/L (3.5-5.1); Protein, Total 6.9 g/dL (6.4-8.2); Sodium Level 137 mmol/L (136-145)
[2019-01-05] MEDS: Magnesium Sulfate 20 GM/500 ML BAG IV ×2 (09:09→18:41)
[2019-01-05] MEDS: Labetalol 200 MG Tablet PO ×2 (09:32→22:38)
--- NOTE | 2019-01-05 09:33 | NURSING ---
pt has gone to ultrasound and has returned
--- NOTE | 2019-01-05 10:33 | PN.OBGYN_ITS ---
Patient Problems: Active and Suspected Problems (Last Reviewed 01/04/19 @ 11:05 by Irene Christiansen) Severe preeclampsia (Acute) Subjective: patient stable no SULLIVAN BV N V tolerating po, feels dizzy on the magenesium. less anxious today. no VB LOF good FM no regular ctx Objective: fht 130 moderate variability reactive no decelerations category I tracing [place]: no regular - Physical Exam General: Alert, Oriented x3 Cardiovascular: Regular rate Abdomen: Soft, Non Tender, Gravid Extremities: Edema, - - no clonus Neurological: Deep Tendon Reflexes 2+/4 and Symmetrical Weight: 198 lb Body Mass Index (BMI) 36.2 Intake and Output for Last 24 Hours 01/03/19 01/04/19 01/05/19 23:59 23:59 23:59 Intake Total 100 / 100 Balance 100 / 100 Laboratory Tests Past 24 Hrs 01/04/19 01/04/19 01/04/19 11:36 11:55 11:55 WBC 10.2 RBC 4.54 Hgb 12.7 Hct 37.4 MCV 82.4 MCH 28.0 MCHC 34.0 RDW 13.7 RDW Differential 39.5 Plt Count 325 MPV 9.6 PT 12.6 INR 1.0 APTT 29.7 Sodium Potassium Chloride Carbon Dioxide Anion Gap BUN Creatinine Estim Creat Clear Calc Est GFR (MDRD) Af Amer Est GFR (MDRD) Non-Af BUN/Creatinine Ratio Glucose Uric Acid Calcium Total Bilirubin AST ALT Alkaline Phosphatase Total Protein Albumin Globulin Albumin/Globulin Ratio U Random Total Protein 33.0 H Urine Creatinine 152.00 Protein/Creatinin Ratio 217 H Group B Strep DNA Specimen Comment 01/04/19 01/04/19 01/05/19 11:55 12:23 05:00 WBC RBC Hgb Hct MCV MCH MCHC RDW RDW Differential Plt Count MPV PT INR APTT Sodium 137 Potassium 4.6 Chloride 104 Carbon Dioxide 21.0 Anion Gap 12 BUN 9 Creatinine 0.62 0.75 Estim Creat Clear Calc 103.98 85.96 Est GFR (MDRD) Af Amer 143 116 Est GFR (MDRD) Non-Af 118 96 BUN/Creatinine Ratio 12.0 Glucose 107 H Uric Acid 5.3 Calcium 8.1 L Total Bilirubin 0.20 AST 19 18 ALT 19 18 Alkaline Phosphatase 111 Total Protein 6.9 Albumin 2.3 L Globulin 4.6 H Albumin/Globulin Ratio 0.5 L U Random Total Protein Urine Creatinine Protein/Creatinin Ratio Group B Strep DNA Negative Specimen Comment Not Reportable 01/05/19 05:00 WBC 11.5 H RBC 4.12 L Hgb 11.4 L Hct 34.0 L MCV 82.5 MCH 27.7 MCHC 33.5 RDW 13.5 RDW Differential 39.2 Plt Count 312 MPV 9.9 PT INR APTT Sodium Potassium Chloride Carbon Dioxide Anion Gap BUN Creatinine Estim Creat Clear Calc Est GFR (MDRD) Af Amer Est GFR (MDRD) Non-Af BUN/Creatinine Ratio Glucose Uric Acid Calcium Total Bilirubin AST ALT Alkaline Phosphatase Total Protein Albumin Globulin Albumin/Globulin Ratio U Random Total Protein Urine Creatinine Protein/Creatinin Ratio Group B Strep DNA Specimen Comment Medical Necessity - Tobacco Use Smoking Status: Light Smoker (<10/day) Assessment/Plan All Active Problems (Last Reviewed 01/04/19 @ 11:05 by Irene Christiansen) Severe preeclampsia (Acute) Supervision of high risk , antepartum (Acute) Anxiety (Acute) Tobacco smoking affecting (Acute) Psoriatic arthritis (Acute) Fibromyalgia (Acute) (Acute) Electrocardiogram showing normal sinus rhythm (Resolved) Supervision of normal first (Resolved) This is a 33 year-old, at 33w0d weeks gestational age with severe preeclampsia or possible exacerbation of chronic hypertension 1. Continue labetalol 200 mg twice daily and magnesium 2 g an hour, monitor blood pressures and will discontinue magnesium after 48 hours. Follow daily labs 2. Prematurity?status post Celestone yesterday and will repeat dose today. 3. Growth ultrasound reassuring, CFM and daily NST
[2019-01-05] MEDS: Betamethasone/Betamethasone 30 MG/5 ML Vial 12 MG IM (16:11)
--- NOTE | 2019-01-05 17:41 | US_ITS ---
STUDY: SECOND AND THIRD TRIMESTER OBSTETRICAL ULTRASOUND - LIMITED REASON FOR EXAM: Female, 33 years old. Routine survey. Hypertension. LMP: May 19, 2018. PRIOR ULTRASOUND: None. TECHNIQUE: Transabdominal and Transvaginal TECHNICAL QUALITY: Limited. Examination limited due to patient's body habitus. FINDINGS: There is a single intrauterine fetus. The fetus is in a breech presentation. There is demonstrated cardiac activity with a heart rate of 123 bpm. There is a normal amniotic fluid volume. The largest amniotic fluid pocket measures 3.8 cm. The amniotic fluid index (ALEXIS) is 9.4 cm. The placenta is anterior in location and is not low lying. There are Grade 2 placental changes. The cervix measures 3.5 cm in length. Fluid is seen within the endometrial canal. BIOMETRY: BPD: 7.96 cm: 32 weeks, 0 days HC: 29.5 cm: 32 weeks, 5 days AC: 29.19 cm: 33 weeks, 2 days FL: 6.23 cm: 32 weeks, 2 days Age by LMP: 33 weeks, 0 days. JENN by LMP: February 23, 2019. age by current US: 32 weeks, 4 days. JENN by current US: February 26, 2019. Estimated weight: 2041 grams, +/- 298 grams, 33 percentile. Gender: Indeterminant US/OB Limited With Biometrics IMPRESSION: Single live intrauterine gestation with a mean gestational age of 32 weeks and 4 days. A small amount of fluid is seen in the endocervical canal. Electronically Signed: Khang Rivera, at 9:17 EDT , Service support ,
[2019-01-06 05:43] LABS: ALB/GLOB Ratio 0.5 RATIO (0.9-2.4); AST(SGOT) 14 U/L (15-37); Alanine Aminotransfer ALT/SGPT 16 U/L (13-56); Albumin, Serum 2.5 g/dL (3.2-5.0); Alkaline Phosphatase 112 U/L (45-117); Anion Gap 13 (5-15); BUN 14 mg/dL (7-18); BUN/Creat Ratio 19.4 RATIO (10-20); Calcium,Total 7.4 mg/dL (8.5-10.1); Chloride 104 mmol/L (98-107); Creatinine, Serum 0.72 mg/dL (0.55-1.02); EST Glomerular Filtration Rate 100 mL/min (>60); Est Glom Filt Rate - Afr Amer 121 mL/min (>60); Estimated Creatinine Clearance 89.54 ml/min; Globulin 4.6 g/dL (2.2-4.2); Glucose 106 mg/dL (74-106); Potassium 4.5 mmol/L (3.5-5.1); Protein, Total 7.1 g/dL (6.4-8.2); Sodium Level 137 mmol/L (136-145)
[2019-01-06] MEDS: Magnesium Sulfate 20 GM/500 ML BAG IV (06:06)
[2019-01-06 06:07] LABS: Creat.Clear Total Volume 3250 mL; Creatinine Clearance 114 ml/min (100-200); Creatinine Serum Creat 0.7 mg/dL (0.6-1.0); Creatinine Urine 36.2 mg/dL (NO RANGE EST.); EST Glomerular Filtration Rate 100 mL/min (>60); Est Glom Filt Rate - Afr Amer 121 mL/min (>60)
[2019-01-06 06:11] LABS: 24 Hour Urine Protein 640.2 mg/24HR (<150 MG/24HR); 24HR. UA Prot. Total Volume 3250 mL; 24HR. Urine Creatinine 1.16 g/24 HR (0.70-1.90); Urine Protein (24 Hour) 19.7 mg/dL (<11.9)
[2019-01-06] MEDS: Labetalol 200 MG Tablet PO ×2 (10:42→21:29)
--- NOTE | 2019-01-06 16:27 | PCM.PN.OB ---
Patient Problems: Active and Suspected Problems (Last Reviewed 01/04/19 @ 11:05 by Irene Christiansen) Severe preeclampsia (Acute) Subjective: denies any SULLIVAN BV N V no vb lof good fm no regular ctx Objective: fht 130-140 moderate variability reactive no decelerations category I tracing [place]: no regular - Physical Exam General: Alert, Oriented x3 HEENT: Atraumatic, Normocephalic Lungs: Clear to auscultation, Normal air movement Cardiovascular: Regular rate Abdomen: Soft, Non Tender, Gravid Extremities: Edema Neurological: Deep Tendon Reflexes 2+/4 and Symmetrical, Clonus - no clonus Weight: 198 lb Body Mass Index (BMI) 36.2 Intake and Output for Last 24 Hours 01/04/19 01/05/19 01/06/19 23:59 23:59 23:59 Intake Total 100 / 100 1180 / 1180 932 / 932 Output Total 1075 / 1075 1375 / 1375 Balance 100 / 100 105 / 105 -443 / -443 Laboratory Tests Past 24 Hrs 01/06/19 01/06/19 01/06/19 05:05 05:05 05:05 Sodium 137 Potassium 4.5 Chloride 104 Carbon Dioxide 20.0 L Anion Gap 13 BUN 14 Creatinine 0.72 0.7 Estim Creat Clear Calc 89.54 Est GFR (MDRD) Af Amer 121 121 Est GFR (MDRD) Non-Af 100 100 BUN/Creatinine Ratio 19.4 Glucose 106 Calcium 7.4 L Total Bilirubin 0.10 L AST 14 L ALT 16 Alkaline Phosphatase 112 Total Protein 7.1 Albumin 2.5 L Globulin 4.6 H Albumin/Globulin Ratio 0.5 L Urine Collection Time 24.0 24.0 Ur Collection Duration 24.0 Urine Total Volume 3.20 Timed Urine Volume 3250 3250 Urine Creatinine 36.2 35.60 Ur Creatinine 24 Hour 1.16 Creatinine Clearance 114 Ur Total Protein 24 Hr 640.2 H Urine Total Protein 19.7 H Medical Necessity - Tobacco Use Smoking Status: Light Smoker (<10/day) Assessment/Plan All Active Problems (Last Reviewed 01/04/19 @ 11:05 by Irene Christiansen) Severe preeclampsia (Acute) Supervision of high risk , antepartum (Acute) Anxiety (Acute) Tobacco smoking affecting (Acute) Psoriatic arthritis (Acute) Fibromyalgia (Acute) (Acute) Electrocardiogram showing normal sinus rhythm (Resolved) Supervision of normal first (Resolved) This is a 33 year-old, at 33w0d weeks gestational age with severe preeclampsia or possible exacerbation of chronic hypertension 1. Continue labetalol 200 mg twice daily and magnesium 2 g an hour, monitor blood pressures and will discontinue magnesium after 48 hours. Follow daily labs 2. Prematurity?status post Celestone yesterday and will repeat dose today. 3. Growth ultrasound reassuring, CFM and daily NST
[2019-01-07] MEDS: Mag Hydrox/Al Hydrox/Simeth 30 ML UDC PO (03:56)
[2019-01-07] MEDS: hydrOXYzine PAM 25 MG Capsule 50 MG PO (03:56)
--- NOTE | 2019-01-07 03:59 | PCM.PN.OB ---
Patient Problems: Active and Suspected Problems (Last Reviewed 01/04/19 @ 11:05 by Irene Christiansen) Severe preeclampsia (Acute) Subjective: patient evaluated due to shortness of breath and chest tightness. Things start throughout the day today but worsened tonight where it is difficult to lay down. she co her upper body feeling tight and achy and she is having worsening heartburn. symptoms are worse laying down. pulse ox is 94-97% on room air. HR 56-60 bp 156/75. patient feeling anxious. she has been up ambulating all day, has not been sleeping well tonight. - Physical Exam General: Alert, Cooperative HEENT: Atraumatic, Normocephalic Lungs: Clear to auscultation, Normal air movement, No rhonchi, No wheeze, No rales Cardiovascular: Normal S1, Normal S2, No murmurs, Bradycardic Weight: 198 lb Body Mass Index (BMI) 36.2 Intake and Output for Last 24 Hours 01/05/19 01/06/19 01/07/19 23:59 23:59 23:59 Intake Total 1180 / 1180 932 / 932 Output Total 1075 / 1075 1375 / 1375 Balance 105 / 105 -443 / -443 Laboratory Tests Past 24 Hrs 01/06/19 01/06/19 01/06/19 05:05 05:05 05:05 Sodium 137 Potassium 4.5 Chloride 104 Carbon Dioxide 20.0 L Anion Gap 13 BUN 14 Creatinine 0.72 0.7 Estim Creat Clear Calc 89.54 Est GFR (MDRD) Af Amer 121 121 Est GFR (MDRD) Non-Af 100 100 BUN/Creatinine Ratio 19.4 Glucose 106 Calcium 7.4 L Total Bilirubin 0.10 L AST 14 L ALT 16 Alkaline Phosphatase 112 Total Protein 7.1 Albumin 2.5 L Globulin 4.6 H Albumin/Globulin Ratio 0.5 L Urine Collection Time 24.0 24.0 Ur Collection Duration 24.0 Urine Total Volume 3.20 Timed Urine Volume 3250 3250 Urine Creatinine 36.2 35.60 Ur Creatinine 24 Hour 1.16 Creatinine Clearance 114 Ur Total Protein 24 Hr 640.2 H Urine Total Protein 19.7 H Medical Necessity - Tobacco Use Smoking Status: Light Smoker (<10/day) Assessment/Plan All Active Problems (Last Reviewed 01/04/19 @ 11:05 by Irene Christiansen) Severe preeclampsia (Acute) Supervision of high risk , antepartum (Acute) Anxiety (Acute) Tobacco smoking affecting (Acute) Psoriatic arthritis (Acute) Fibromyalgia (Acute) (Acute) Electrocardiogram showing normal sinus rhythm (Resolved) Supervision of normal first (Resolved) patient with acute chest symptoms- stat EKG sinus bradycardia no significant abnormalities, stable vital signs, discussed with patient and will give maalox and vistaril now for possible anxiety and heartburn. If no improvement in symptoms recommend CT of chest.
--- NOTE | 2019-01-07 04:07 | EKG12_ITS ---
Test Reason : TACHY Blood Pressure : / mmHG Vent. Rate : 055 BPM Atrial Rate : 055 BPM P-R Int : 116 ms QRS Dur : 076 ms QT Int : 416 ms P-R-T Axes : 031 034 040 degrees QTc Int : 397 ms Sinus bradycardia Otherwise normal ECG Confirmed by LEON TIRADO, YAHAIRA ([id number]), food editor KARSTEN WILSON ([id number]) on 01/10/2019 8:09:44 AM Referred By: Negin Isabel Confirmed By:YAHAIRA QUINTERO MD
--- NOTE | 2019-01-07 04:25 | CT_ITS ---
STUDY: CT CHEST WITH CONTRAST REASON FOR EXAM: Female, 33 years old. Chest tightness RADIATION DOSAGE (If Supplied By Facility): CTDIvol = ( 10.91 ) mGy, DLP = ( 657.94 ) mGycm TECHNIQUE: Transaxial imaging was performed following intravenous administration of 100ML IV Isovue 370. Individualized dose optimization techniques were used for this CT. COMPARISON: None. FINDINGS: TRACHEA, THYROID, ESOPHAGUS: No tracheomalacia,stricture or wall thickening. Thyroid and esophagus are normal CARDIOVASCULAR SYSTEM: The thoracic aorta is normal with no focal aneurysm or dissection. There are no abnormal calcifications/metallic densities at the aortic root. The pulmonary trunk and the left and right pulmonary arteries and their lobar and segmental branches all fail to show any abnormal and persistent filling defects to indicate the presence of pulmonary embolism. The heart is normal in size with no demonstration of any right ventricular strain. No developmental vascular anomalies are seen. JOE AND LYMPH NODES: No hilar masses and no mediastinal, hilar, axillary or supraclavicular adenopathy LUNGS, LOW-ATTENUATION: No traction bronchiectasis, honeycombing,emphysema, lung cysts or cavitations LUNGS, HIGH ATTENUATION: No nodules/masses, ground glass opacities/consolidations or increased interstitial markings LUNGS, MOSAIC/CRAZY PAVING: Not evident PLEURA AND CHEST WALL: No plural effusions, pneumothoraces,rib fractures or any osteolytic/osteoblastic changes . The soft tissue chest wall including the breasts are normal UPPER ABDOMEN: Unremarkable . CT/Chest WITH Contrast IMPRESSION: No evidence of any pulmonary embolism. The thoracic aorta is normal. No acute findings in the lungs Electronically Signed: Bossman Carmichael MD at 6:09 EDT Tel , Service support ,
[2019-01-07] MEDS: Labetalol 200 MG Tablet PO ×2 (09:39→22:06)
--- NOTE | 2019-01-07 11:37 | PN.OBGYN_ITS ---
Patient Problems: Active and Suspected Problems (Last Reviewed 01/04/19 @ 11:05 by Irene Christiansen) Severe preeclampsia (Acute) Subjective: no SULLIVAN BV, N V. negative CT chest this morning, symptoms improving with icy hot and position changes. patient very anxious about being monitored and being confined to her room, asking to ambulate more. Objective: fht 130 moderate variability reactive no decelerations category I tracing [place]: no regular - Physical Exam General: Alert, Oriented x3 Lungs: Normal air movement Cardiovascular: Regular rate Abdomen: Soft, Non Tender Extremities: Edema, - - no clonus Weight: 198 lb Body Mass Index (BMI) 36.2 Intake and Output for Last 24 Hours 01/05/19 01/06/19 01/07/19 23:59 23:59 23:59 Intake Total 1180 / 1180 932 / 932 Output Total 1075 / 1075 1375 / 1375 Balance 105 / 105 -443 / -443 Microbiology Past 72 Hours 01/04/19 Unknown Group B Streptococcus Culture - Final Genital vaginal Group B Beta Streptococcus is not isolated. Medical Necessity - Tobacco Use Smoking Status: Light Smoker (<10/day) Assessment/Plan All Active Problems (Last Reviewed 01/04/19 @ 11:05 by Irene Christiansen) Severe preeclampsia (Acute) Supervision of high risk , antepartum (Acute) Anxiety (Acute) Tobacco smoking affecting (Acute) Psoriatic arthritis (Acute) Fibromyalgia (Acute) (Acute) Electrocardiogram showing normal sinus rhythm (Resolved) Supervision of normal first (Resolved) This is a 33 year-old, at 33w2d weeks gestational age with severe preeclampsia 1. Continue labetalol 200 mg twice daily, monitor bps and twice weekly afis and labs, plan IOL at 34 weeks if Vtx, cs if breech, or change in status. 2. Prematurity?s/p celestone x 2 3. Growth ultrasound reassuring, q shift NST. no heart rate abnormalities
--- NOTE | 2019-01-08 07:59 | PCM.PN.OB ---
Patient Problems: Active and Suspected Problems (Last Reviewed 01/04/19 @ 11:05 by Irene Christiansen) Severe preeclampsia (Acute) Subjective: no CP SOB N V SULLIVAN BV. slept better last night but still struggling. anxiety controlled. - Physical Exam General: Alert, Oriented x3 Lungs: Normal air movement Cardiovascular: Bradycardic Abdomen: Soft, Non Tender, Gravid Extremities: No edema Neurological: Deep Tendon Reflexes 2+/4 and Symmetrical, - - no clonus Weight: 198 lb Body Mass Index (BMI) 36.2 Intake and Output for Last 24 Hours 01/06/19 01/07/19 01/08/19 23:59 23:59 23:59 Intake Total 932 / 932 Output Total 1375 / 1375 Balance -443 / -443 Microbiology Past 72 Hours 01/04/19 Unknown Group B Streptococcus Culture - Final Genital vaginal Group B Beta Streptococcus is not isolated. Medical Necessity - Tobacco Use Smoking Status: Light Smoker (<10/day) Assessment/Plan All Active Problems (Last Reviewed 01/04/19 @ 11:05 by Irene Christiansen) Severe preeclampsia (Acute) Supervision of high risk , antepartum (Acute) Anxiety (Acute) Tobacco smoking affecting (Acute) Psoriatic arthritis (Acute) Fibromyalgia (Acute) (Acute) Electrocardiogram showing normal sinus rhythm (Resolved) Supervision of normal first (Resolved) This is a 33 year-old, at 33w3d weeks gestational age with severe preeclampsia 1. Continue labetalol 200 mg twice daily, monitor bps and twice weekly afis and labs, plan IOL at 34 weeks if Vtx, cs if breech, or change in status. 2. Prematurity?s/p celestone x 2 3. Growth ultrasound reassuring, q shift NST. no heart rate abnormalities
[2019-01-08] MEDS: Labetalol 200 MG Tablet PO ×2 (10:03→22:01)
--- NOTE | 2019-01-08 20:00 | NURSING ---
SCD'S IN ROOM, STATES WEARS WHEN SHE IS IN BED. PT CURRENTLY NOT IN BED
[2019-01-09] VITALS (26 sets, daily range): BP systolic 102–173; BP diastolic 59–92; PULSE 60–82; RESP 16–20; TEMP 35.6–36.9; O2SAT 98–100
[2019-01-09] MEDS: 0.9% Saline Lock 10 ML Syringe IV ×3 (04:45→13:54)
[2019-01-09] MEDS: Lactated Ringers 1,000 ML 999 ML IV (04:55)
[2019-01-09 05:25] LABS: Hematocrit 37.4 % (37-47); Hemoglobin 12.6 g/dl (12.0-15.0); Mean Corp Hgb Conc 33.7 g/gl (32-36); Mean Corpuscular Hgb 28.2 pg (27.0-32.0); Mean Corpuscular Volume 83.7 fL (81-99); Mean Platelet Vol. 10.1 fl (6.2-12.0); Platelet Count 328 K/mm3 (150-450); RBC Distribution Width CV 13.7 % (11.6-14.6); RBC Distribution Width SD 40.6 fl (35.1-43.9); Red Blood Count 4.47 M/mm3 (4.2-5.4); White Blood Count 10.8 K/mm3 (4.4-11.0)
[2019-01-09] MEDS: Magnesium Sulfate 20 GM/500 ML BAG IV ×3 (05:29→16:44)
[2019-01-09 05:31] LABS: Scan Indicated on CBC? Y/N NO
[2019-01-09 05:41] LABS: ALB/GLOB Ratio 0.5 RATIO (0.9-2.4); AST(SGOT) 15 U/L (15-37); Alanine Aminotransfer ALT/SGPT 15 U/L (13-56); Albumin, Serum 2.2 g/dL (3.2-5.0); Alkaline Phosphatase 105 U/L (45-117); BUN 15 mg/dL (7-18); Calcium,Total 9.8 mg/dL (8.5-10.1); Chloride 104 mmol/L (98-107); Creatinine, Serum 0.58 mg/dL (0.55-1.02); EST Glomerular Filtration Rate 129 mL/min (>60); Est Glom Filt Rate - Afr Amer 156 mL/min (>60); Estimated Creatinine Clearance 111.15 ml/min; Globulin 4.6 g/dL (2.2-4.2); Glucose 86 mg/dL (74-106); Potassium 4.7 mmol/L (3.5-5.1); Protein, Total 6.8 g/dL (6.4-8.2); Sodium Level 137 mmol/L (136-145)
[2019-01-09 05:42] LABS: Anion Gap 12 (5-15)
[2019-01-09] MEDS: Sodium Citrate/Citric Acid 30 ML UDC PO (05:50)
[2019-01-09] MEDS: Lactated Ringers 1,000 ML 150 ML IV (05:56)
--- NOTE | 2019-01-09 06:08 | PN_ITS ---
Progress Note elevated BPs now severe- hypertensive protocol started with hydralazine, patient denies SULLIVAN BV no vb lof, magnesium started fht 150 moderate variability reactive no decelerations category I tracing [place]: no regular no clonus A/P: 33 yo @ 33w4d with recurrent severe preeclampsia plan proceeding with delivery secondary to refractory blood pressures. breech so will proceed with primary . patient counseled regarding R/B/A and agrees
[2019-01-09] MEDS: Cefazolin 2 GM in 0.9% Normal Saline 100 ML IV (06:09)
--- NOTE | 2019-01-09 06:35 | PCM.OPRPT ---
Problem List (1) Severe preeclampsia Status: Acute (2) Supervision of high risk , antepartum Status: Acute Comment: PRR JENN 02/23/19 boy Phi Spouse Will (3) Anxiety Status: Acute Comment: declined meds, encouraged counseling (4) Tobacco smoking affecting Status: Acute Qualifiers: (5) Psoriatic arthritis Status: Acute (6) Hypertension Status: Chronic Qualifiers: Comment: Baseline labs nl. home bp monitoring, discussed and plan growth us at 32 weeks and weekly nsts from 36 weeks on and weekly mat 36 weeks on. deliver at 39 weeks. change if elevated bps. 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 Anatomy US normal Delivery Classification: WILMER Final JENN: 02/23/19 Gestational age: 33 Weeks and 4 Days Indications: recurrent severe preeclampsia Indications for : Breech Description of Procedure: The patient is a 33 @33w4d who was originally admitted 5 days ago and given magnesium, labetalol, and celestone. she was stabilized for several days and then developed recurrent severe pressures and therefore the decision was made to proceed with primary . Spinal anesthesia was placed without difficulty. Vasquez catheter was placed. The patient was placed in the dorsal supine position with leftward tilt. Patient was prepped and draped in the normal sterile fashion. Pfannenstiel skin incision was made with the scalpel and carried through to the underlying layer of fascia with the scalpel. Fascia was nicked in the midline and the incision extended laterally. The rectus bellies were dissected off superiorly and inferiorly with out complication both sharply and bluntly. The peritoneum was entered digitally. The incision was stretched and a low transverse uterine incision was made with the scalpel. The 's head was delivered atraumatically followed by the anterior and posterior shoulders without complication the rest of the infant delivered. The cord was clamped and cut and the was handed off to awaiting nurse. The placenta was delivered spontaneously immediately following and was noted to be intact and have a three-vessel cord. The uterus was exteriorized cleared of all clots and debris, and the incision was closed in a double layer closure using #1 Monocryl. The uterus was returned to the maternal abdomen and gutters were cleared of all clots and debris. The ovaries and fallopian tubes were noted to be within normal limits. The peritoneum was closed with 3-0 Monocryl in a running fashion. Fascia was closed with 0 PDS in a running fashion. Subcutaneous tissue was copiously irrigated and the skin was closed with 3-0 Monocryl in a subcuticular fashion. Mepilex dressing were applied without complication. Patient was taken to recovery in stable condition. Amniotic Fluid Description: Clear Placenta Disposition: [facility] Drain: Vasquez to straight drain Cord Entanglement: None Gender: Male Delayed cord clamping: Yes Pre-op Antibiotic Given: Ancef 2 grams IV x1 Pt instructed on risks of surgery: Bleeding, Anesthesia Risks, Infection Complications: None - Admit VTE Documentation VTE Present on Admission: No VTE Mechan Device Prophylaxis: SCD's
[2019-01-09] MEDS: Oxytocin 30 units/NS 500 ml 30 UNITS/500 ML IV.SOLN 167 UNITS IV (06:53)
[2019-01-09] MEDS: Lactated Ringers 1,000 ML 100 ML IV (08:11)
--- NOTE | 2019-01-09 09:30 | NURSING ---
Dr. Bush in room to discuss transfer of baby to [place] for Resp. support. Pt crying and upset. Will monitor BP after pt settles and questions answered.
[2019-01-09] MEDS: Ketorolac 15 MG/ML Vial 30 MG IV ×2 (13:52→19:50)
--- NOTE | 2019-01-09 17:07 | NURSING ---
New bag hung at continued rate of 2 gm/hr. Verified per Shawna
[2019-01-09] MEDS: Enoxaparin 40 MG/0.4 ML Syringe SC (19:51)
[2019-01-10] VITALS (11 sets, daily range): BP systolic 114–158; BP diastolic 60–93; PULSE 71–96; RESP 16–18; TEMP 36.4–37.3; O2SAT 97–99
[2019-01-10] MEDS: Ketorolac 15 MG/ML Vial 30 MG IV ×4 (01:56→19:49)
[2019-01-10] MEDS: Magnesium Sulfate 20 GM/500 ML BAG IV (02:57)
[2019-01-10 05:18] LABS: Hematocrit 33.1 % (37-47); Hemoglobin 10.7 g/dl (12.0-15.0); Mean Corp Hgb Conc 32.3 g/gl (32-36); Mean Corpuscular Hgb 27.2 pg (27.0-32.0); Mean Corpuscular Volume 84.2 fL (81-99); Mean Platelet Vol. 9.5 fl (6.2-12.0); Platelet Count 327 K/mm3 (150-450); RBC Distribution Width SD 41.9 fl (35.1-43.9); Red Blood Count 3.93 M/mm3 (4.2-5.4); White Blood Count 11.3 K/mm3 (4.4-11.0)
[2019-01-10 05:33] LABS: Scan Indicated on CBC? Y/N NO
[2019-01-10 05:34] LABS: ALB/GLOB Ratio 0.5 RATIO (0.9-2.4); AST(SGOT) 16 U/L (15-37); Alanine Aminotransfer ALT/SGPT 13 U/L (13-56); Alkaline Phosphatase 93 U/L (45-117); Anion Gap 10 (5-15); BUN 22 mg/dL (7-18); Chloride 101 mmol/L (98-107); Creatinine, Serum 0.67 mg/dL (0.55-1.02); EST Glomerular Filtration Rate 109 mL/min (>60); Est Glom Filt Rate - Afr Amer 132 mL/min (>60); Estimated Creatinine Clearance 96.22 ml/min; Globulin 4.1 g/dL (2.2-4.2); Glucose 87 mg/dL (74-106); Potassium 5.5 mmol/L (3.5-5.1); Protein, Total 6.1 g/dL (6.4-8.2); Sodium Level 134 mmol/L (136-145)
[2019-01-10 05:35] LABS: Calcium,Total 8.2 mg/dL (8.5-10.1)
[2019-01-10] MEDS: oxyCODONE 5 MG Tablet PO ×2 (08:39→18:51)
[2019-01-10] MEDS: 0.9% Saline Lock 10 ML Syringe IV ×5 (08:39→19:49)
[2019-01-10] MEDS: Senna/Docusate Sodium 1 Tablet PO (08:39)
[2019-01-10] MEDS: NIFEdipine 30 MG Tablet PO (10:11)
[2019-01-10] MEDS: Enoxaparin 40 MG/0.4 ML Syringe SC (11:35)
[2019-01-10] MEDS: Labetalol 100 MG Tablet PO (12:26)
--- NOTE | 2019-01-10 14:14 | PCM.PN.OB ---
Patient Problems: Active and Suspected Problems (Last Reviewed 01/04/19 @ 11:05 by Irene Christiansen) Severe preeclampsia (Acute) Subjective: no calvo bv no cp sob n v pain controlled, feeling anxious wanting to leave - Physical Exam General: Alert, Oriented x3 Abdomen: Soft, Non Tender Neurological: - - no clonus Vital Signs Temp Pulse Resp BP Pulse Ox 98.1 F 75 16 148/93 H 99 01/10/19 07:43 01/10/19 07:43 01/10/19 07:43 01/10/19 07:43 01/10/19 05:49 Oxygen Delivery Method Room Air Weight: 198 lb Body Mass Index (BMI) 36.2 Intake and Output for Last 24 Hours 01/08/19 01/09/19 01/10/19 23:59 23:59 23:59 Intake Total 2672 / 2672 865 / 865 Output Total 2485 / 2485 980 / 980 Balance 187 / 187 -115 / -115 Laboratory Tests Past 24 Hrs 01/10/19 01/10/19 05:00 05:00 WBC 11.3 H RBC 3.93 L Hgb 10.7 L Hct 33.1 L MCV 84.2 MCH 27.2 MCHC 32.3 RDW 14.0 RDW Differential 41.9 Plt Count 327 MPV 9.5 Sodium 134 L Potassium 5.5 H Chloride 101 Carbon Dioxide 23.0 Anion Gap 10 BUN 22 H Creatinine 0.67 Estim Creat Clear Calc 96.22 Est GFR (MDRD) Af Amer 132 Est GFR (MDRD) Non-Af 109 BUN/Creatinine Ratio 33.0 H Glucose 87 Calcium 8.2 L Total Bilirubin 0.10 L AST 16 ALT 13 Alkaline Phosphatase 93 Total Protein 6.1 L Albumin 2.0 L Globulin 4.1 Albumin/Globulin Ratio 0.5 L Medical Necessity - Tobacco Use Smoking Status: Current every day smoker Assessment/Plan All Active Problems (Last Reviewed 01/04/19 @ 11:05 by Irene Christiansen) Severe preeclampsia (Acute) Supervision of high risk , antepartum (Acute) Anxiety (Acute) Tobacco smoking affecting (Acute) Psoriatic arthritis (Acute) Fibromyalgia (Acute) (Acute) Electrocardiogram showing normal sinus rhythm (Resolved) Supervision of normal first (Resolved) s/p LTCS POD 1 severe preeclampsia s/p magnesium x 24 hours. started labetalol and procardia for bp control. routine postop care
--- NOTE | 2019-01-10 14:50 | NURSING ---
LE: refer to QS flowsheet for complete record of BP's. Labetelol first line HTN protocol order set initiated at 1115.
[2019-01-10] MEDS: hydrOXYzine PAM 25 MG Capsule PO (15:13)
[2019-01-10] MEDS: Labetalol 200 MG Tablet PO (21:28)
[2019-01-11 00:13] VITALS: BP 109/53; PULSE 82; RESP 18; TEMP 36.7
[2019-01-11] MEDS: Ketorolac 15 MG/ML Vial 30 MG IV ×2 (01:26→07:51)
[2019-01-11] MEDS: 0.9% Saline Lock 10 ML Syringe IV ×2 (01:26→07:51)
[2019-01-11 04:00] VITALS: BP 117/61; PULSE 84; RESP 18; TEMP 36.8
[2019-01-11] MEDS: oxyCODONE 5 MG Tablet PO (07:15)
[2019-01-11 08:02] VITALS: BP 142/89; PULSE 84; RESP 16; TEMP 36.8
--- NOTE | 2019-01-11 09:24 | PCM.PN.OB ---
Patient Problems: Active and Suspected Problems (Last Reviewed 01/04/19 @ 11:05 by Irene Christiansen) Severe preeclampsia (Acute) Subjective: doing well no CP SOB N V no SULLIVAN BV bps controlled - Physical Exam General: Alert, Oriented x3 Vital Signs Temp Pulse Resp BP Pulse Ox 98.2 F 84 16 142/89 H 98 01/11/19 08:02 01/11/19 08:02 01/11/19 08:02 01/11/19 08:02 01/10/19 21:30 Oxygen Delivery Method Room Air Weight: 198 lb Body Mass Index (BMI) 36.2 Intake and Output for Last 24 Hours 01/09/19 01/10/19 01/11/19 23:59 23:59 23:59 Intake Total 2672 / 2672 865 / 865 Output Total 2485 / 2485 1730 / 1730 Balance 187 / 187 -865 / -865 Medical Necessity - Tobacco Use Smoking Status: Current every day smoker Assessment/Plan All Active Problems (Last Reviewed 01/04/19 @ 11:05 by Irene Christiansen) Severe preeclampsia (Acute) Supervision of high risk , antepartum (Acute) Anxiety (Acute) Tobacco smoking affecting (Acute) Psoriatic arthritis (Acute) Fibromyalgia (Acute) (Acute) Electrocardiogram showing normal sinus rhythm (Resolved) Supervision of normal first (Resolved) s/p LTCS POD 2 severe preeclampsia s/p magnesium x 24 hours. started labetalol and procardia for bp control. stable now. reviewed precautions and recommend bp monitoring at home routine postop care
--- NOTE | 2019-01-11 09:28 | DCINST_ITS ---
Discharge Diet: No Restrictions Discharge Activity: May Not Drive - for 2 weeks, May not drive while taking narcotic pain medications., May Shower, May Take a Tub Bath - in 7 days May resume sexual activity in: 4-6 weeks Lifting Restrictions: 20 pounds Additional Activity Instructions:: Nothing in the vagina for 4-6 weeks. You may return to work/school in 6 weeks. Call your doctor if your incision/area has: Continuous Slow Oozing, Sudden Increased Bleeding, Increased Pain/ Swelling, Increased Redness, Foul Smelling Discharge Call your doctor if you observe: Fever of 101 or Higher, Using more than one pad per hour - for 2 hours Suture Line Care: Avoid Pulling/Pushing, Avoid Pinching/Bending Cleanse incision/area with: Keep Dressing Clean & Dry Additional Instructions: If you experience any of the following, contact your healthcare provider. * Bleeding that soaks a pad every hour for 2 hours * Fever 100.4 or higher * Unrelieved incision or abdominal pain * Swelling, redness, discharge or bleeding from your incision or episiotomy site * Your incision begins to separate * Problems urinating (including inability to urinate or burning while urinating). * Visual changes * Severe headache * Flu-like symptoms * Pain or redness in one of both of your breasts * Pain, warmth, tenderness or swelling in your legs, especially the calf area * Frequent nausea and vomiting * Symptoms of depression or anxiety If you experience any of the following, call 911 or go to the nearest Emergency Room. * Chest pain * Problems breathing * Seizure activity * Partial or complete paralysis of a body part, slurred speech, weakness or drooping of the face, or a sudden inability to walk or hold your balance Allergies/Adverse Reactions: Allergies No Known Allergies Allergy (Verified 01/04/19 11:04) Medications to take at Discharge blood pressure monitor kit See Dose Instructions .ROUTE .MEDSUPPLY #1 ea 07/27/18 docosahexanoic acid 200 mg capsule mg PO cap 07/27/18 citalopram 20 mg tablet 20 mg PO DAILY #30 tab 09/16/18 Caplet 1 tab PO DAILY 01/04/19 Labetalol [Trandate (Beta Curtis)] 200 mg PO BID #60 tab 01/11/19 Naproxen [Naprosyn] 250 - 500 mg PO Q8H PRN PRN #30 tab 01/11/19 Nifedipine [Procardia Xl] 30 mg PO DAILY #30 tab.er.24 01/11/19 Oxycodone HCl/Acetaminophen [Percocet 5-325] 1 - 2 tablet PO Q4H PRN PRN 7 Days #28 tablet 01/11/19 The following prescriptions were given: Naproxen [Naprosyn] 250 - 500 mg PO Q8H PRN PRN #30 tab PRN Reason: MILD PAIN Transmission Status: Pending to [facility] Oxycodone HCl/Acetaminophen [Percocet 5-325] 1 - 2 tablet PO Q4H PRN PRN 7 Days #28 tablet PRN Reason: Moderate-Severe pain Transmission Status: Sent to [facility] Nifedipine [Procardia Xl] 30 mg PO DAILY #30 tab.er.24 Transmission Status: Pending to [facility] Labetalol [Trandate (Beta Curtis)] 200 mg PO BID #60 tab Transmission Status: Pending to [facility] Follow-Up: Call to make an appointment with your doctor for an incision check in 1-2 weeks. You will also need a 6 week post- follow up appointment. Test results from this visit will be discussed in further detail at your follow- up appointment, if applicable. Please Follow Up With: Negin Isabel MD - Call to make an appointment for an incision check in 1-2 [phone] When: You will need a post- check in 6 weeks. Primary Care Physician: Nakia Peterson NP-C [Primary Care Provider] -
--- NOTE | 2019-01-11 09:42 | CASEMGMT ---
Social Work Brief Assessment - Labor and Delivery Unit Refer documentation below for further details. Referred By: social work identification. Reason for Referral: maternal history of anxiety, [facility]. Date of Intervention: 01/11/2019 Time of Intervention: 929 Informant: Medical record and mother of baby (MOB) Kelly Benitez History: MOB is a 33 year old female, to father of baby (FOB) Tolu Benitez. MOB is G1, P0 to 1 after delivering baby juli Yip at 33.4 weeks gestation on 01.09.2019 via WILMER caesarian section. MOB with pre-eclampsia, with history of chronic hypertension prior to . MOB also with history of fibromyalgia and anxiety. Chart indicates MOB started on citalopram during this for mood/anxiety. Baby was born with Apgars of 9 and 9, transferred to [facility] for issues related to prematurity and hypoxia, then later transferred to [facility]. MOB and FOB are both gainfully employed and MOB reports to have a college education with focus in business. Assessment: MOB reports to have all needed supplies for baby, as both MOB and FOB have busy work schedules in the spring and summer, so got everything ready in the winter months. MOB reports to have support from FOB, mother, siblings and reports to be looking forward to going to see Phi. MOB reports to be feeling better now that knows can go and see Phi. Touched base with MOB about depression and anxiety, reviewed some of the risk factors present for MOB, and encouraged self care. MOB reports staff have been talking to MOB about depression. Provided MOB packet of information to review, which includes online and local resources to turn to if needed down the road. MOB expressed appreciation for social insurance analyst coming to check on MOB, denies any needs for home going. Let MOB know that social work is available at [facility] and will likely be following family while Phi is admitted. MOB expressed understanding. Plan: MOB discharging to home today. Plans to go to [place] to see the baby and will have support from family. No further needs requested or indicated. -PAPI Holm, [employer]
[2019-01-11 09:51] VITALS: BP 142/74; PULSE 93
[2019-01-11] MEDS: NIFEdipine 30 MG Tablet PO (09:53)
[2019-01-11] MEDS: Labetalol 200 MG Tablet PO (09:53)
[2019-01-11] MEDS: Enoxaparin 40 MG/0.4 ML Syringe SC (09:53)
--- NOTE | 2019-01-11 10:05 | NURSING ---
specialty development consultant went over patient's breast pump to take home in detail.
--- NOTE | 2019-01-16 04:19 | PCM.DC.SUM ---
Discharge Date and Diagnosis Date of Admission: 01/04/19 Date of Discharge: 01/11/19 - Secondary Discharge Diagnosis Chronic Problems (Last Reviewed 01/04/19 @ 11:05 by Irene Christiansen) Hypertension (Chronic) Baseline labs nl. home bp monitoring, discussed and plan growth us at 32 weeks and weekly nsts from 36 weeks on and weekly mat 36 weeks on. deliver at 39 weeks. change if elevated bps. Hospital Course and Treatment Operations: - - lctcs breech Summary of Care Provided: The patient is a 33 year old G1, P0 presented at 33 weeks with a history of chronic hypertension with superimposed with severe features. She was on a previous medications her blood pressure in the . The patient was stabilized on magnesium sulfate for 48 hours and given 2 doses of Celestone for prematurity and was started on labetalol twice daily. Initial labs were all within normal limits and she was negative for proteinuria. The next day 24 urine was started which was back abnormal at 600 mg. Patient remained inpatient for expectant management of preeclampsia severe features and then after several days she developed a recurrence of severely elevated blood pressures and therefore the decision to proceed with delivery was made. Fetus was in breech presentation therefore the decision for primary low transverse was made and proceeded with delivery. Postoperatively patient had a return of bowel and bladder function was ambulating well tolerating p.o. and had adequate pain control with oral medications. She had some elevated blood pressures and therefore was started on antihypertensives. After good control blood pressures patient was stable for discharge - Physical Exam Vital Signs Temp Pulse Resp BP Pulse Ox 98.2 F 93 16 142/74 H 98 01/11/19 08:02 01/11/19 09:51 01/11/19 08:02 01/11/19 09:51 01/10/19 21:30 Oxygen Delivery Method Room Air Weight: 198 lb Body Mass Index (BMI) 36.2 Discharge Diet: No Restrictions Discharge Activity: May Not Drive - for 2 weeks, May not drive while taking narcotic pain medications., May Shower, May Take a Tub Bath - in 7 days May resume sexual activity in: 4-6 weeks Additional Activity Instructions:: Nothing in the vagina for 4-6 weeks. You may return to work/school in 6 weeks. Call your doctor if your incision/area has: Continuous Slow Oozing, Sudden Increased Bleeding, Increased Pain/ Swelling, Increased Redness, Foul Smelling Discharge Call your doctor if you observe: Fever of 101 or Higher, Using more than one pad per hour - for 2 hours Suture Line Care: Avoid Pulling/Pushing, Avoid Pinching/Bending Cleanse incision/area with: Keep Dressing Clean & Dry Home Medications: Medications to take at Discharge blood pressure monitor kit See Dose Instructions .ROUTE .MEDSUPPLY #1 ea 07/27/18 docosahexanoic acid 200 mg capsule mg PO cap 07/27/18 citalopram 20 mg tablet 20 mg PO DAILY #30 tab 09/16/18 Caplet 1 tab PO DAILY 01/04/19 Labetalol [Trandate (Beta Curtis)] 200 mg PO BID #60 tab 01/11/19 Naproxen [Naprosyn] 250 - 500 mg PO Q8H PRN PRN #30 tab 01/11/19 Nifedipine [Procardia Xl] 30 mg PO DAILY #30 tab.er.24 01/11/19 Oxycodone HCl/Acetaminophen [Percocet 5-325] 1 - 2 tab PO Q4H PRN PRN 7 Days #28 tab 01/11/19 Following Prescrptions Were Given to Patient: Naproxen [Naprosyn] 250 - 500 mg PO Q8H PRN PRN #30 tab PRN Reason: MILD PAIN Transmission Status: Received by [facility] Oxycodone HCl/Acetaminophen [Percocet 5-325] 1 - 2 tab PO Q4H PRN PRN 7 Days #28 tab PRN Reason: Moderate-Severe pain Transmission Status: Received by [facility] Nifedipine [Procardia Xl] 30 mg PO DAILY #30 tab.er.24 Transmission Status: Received by [facility] Labetalol [Trandate (Beta Curtis)] 200 mg PO BID #60 tab Transmission Status: Received by [facility] Primary Care Physician: Nakia Peterson NP-C [Primary Care Provider] - Please Follow Up With: Negin Isabel MD - Call to make an appointment for an incision check in 1-2 [phone] When: You will need a post- check in 6 weeks. Medical Necessity - Tobacco Use Smoking Status: Current every day smoker Meaningful Use Info Meaningful Use Diagnoses (Choose all that apply): None applicable
== END 2019-01-11 10:30 | disposition home or self-care (01) | DRG 786 ==
LOC: WP 01-05 13:12 → WPOUT 01-05 15:58 → WP 01-05 15:59 → WPOUT 01-05 15:59 → WP 01-06 09:59
PROVIDERS: Nurse Practitioner Women's Health; Admitting Provider Obstetrics & Gynecology; Family Provider Nurse Practitioner; PCP Nurse Practitioner; Referring Provider Obstetrics & Gynecology; Visit Provider Obstetrics & Gynecology
DX: O11.3 Pre-existing hypertension with pre-eclampsia, third trimester (principal); O60.14X0 Preterm labor third trimester with preterm delivery third trimester, not applicable or unspecified; O10.913 Unspecified pre-existing hypertension complicating pregnancy, third trimester; O32.1XX0 Maternal care for breech presentation, not applicable or unspecified; O99.343 Other mental disorders complicating pregnancy, third trimester; F41.9 Anxiety disorder, unspecified; R06.02 Shortness of breath; O99.89 Other specified diseases and conditions complicating pregnancy, childbirth and the puerperium; R12 Heartburn; M79.7 Fibromyalgia; O99.713 Diseases of the skin and subcutaneous tissue complicating pregnancy, third trimester; L40.50 Arthropathic psoriasis, unspecified; O99.333 Smoking (tobacco) complicating pregnancy, third trimester; F17.200 Nicotine dependence, unspecified, uncomplicated; Z3A.33 33 weeks gestation of pregnancy; Z37.0 Single live birth
CPT/HCPCS: 59025; 59050; 71260; 76816; 80053; 82565; 82570; 82575; 84156; 84450; 84460; 84550; 85027; 85610; 85730; 86850; 86900; 87081; 87653; 93005; 99218; J7120; Q9967; A4216; G0378; J0702

== ENCOUNTER → 2020-02-08 10:14 | Outpatient (CLI) | payer OTHER, SELFPAY ==
[2020-02-08 10:02] VITALS: BMI 35.4
[2020-02-08 10:47] LABS: Absolute Lymphocyte Count 1.25 X10^3/uL (0.83-4.51); Absolute Neutrophil Count 5.1 X10^3/uL (2.0-7.7); Basophil# 0.03 X10^3/uL; Basophil% 0.4 % (0-1); Eosinophil# 0.08 X10^3/uL; Eosinophils% 1.2 % (0-5); Hematocrit 39.7 % (37-47); Hemoglobin 13.1 g/dL (12.0-15.0); Lymphocyte # 1.25 X10^3/ul (4.0); Lymphocyte % 18.4 % (19-41); Mean Corpuscular Hgb 28.1 pg (27.0-32.0); Mean Platelet Vol. 8.3 fl (6.2-12.0); Monocyte# 0.36 X10^3/uL; Monocyte% 5.3 % (0-10); NRBC Flagged by Analyzer 0 % (0-5); Neutrophil # 5.06 X10^3/uL (2.7-7.7); Neutrophil % 74.6 % (47-70); Platelet Count 357 K/mm3 (150-450); RBC Distribution Width CV 12.6 % (11.6-14.6); RBC Distribution Width SD 38.2 fl (35.1-43.9); Red Blood Count 4.67 M/mm3 (4.2-5.4); White Blood Count 6.8 K/mm3 (4.4-11.0)
[2020-02-08 11:10] LABS: ALB/GLOB Ratio 0.8 RATIO (0.9-2.4); AST(SGOT) 12 U/L (15-37); Alanine Aminotransfer ALT/SGPT 16 U/L (13-56); Albumin, Serum 3.6 g/dL (3.2-5.0); Alkaline Phosphatase 82 U/L (45-117); Anion Gap 5 (5-15); BUN 8 mg/dL (7-18); BUN/Creat Ratio 13.5 RATIO (10-20); Calcium,Total 8.7 mg/dL (8.5-10.1); Chloride 105 mmol/L (98-107); Creatinine, Serum 0.59 mg/dL (0.55-1.02); EST Glomerular Filtration Rate 124 mL/min (>60); Est Glom Filt Rate - Afr Amer 151 mL/min (>60); Globulin 4.4 g/dL (2.2-4.2); Glucose 131 mg/dL (74-106); Glucose Challenge Gest 1H 50g 131 mg/dL (70-140); Potassium 3.4 mmol/L (3.5-5.1); Sodium Level 135 mmol/L (136-145)
[2020-02-08 15:53] LABS: Protein:Creat Ratio 86 mg/g CRE (0-200)
[2020-02-08 16:14] LABS: Amphetamine Urine VISTA NEGATIVE (<1000 ng/mL); Barbiturate Urine VISTA NEGATIVE (< 200 ng/mL); Benzodiazepine Urine VISTA NEGATIVE (< 200 ng/mL); Cocaine Urine VISTA NEGATIVE (< 300 ng/mL); Ecstacy Urine VISTA POSITIVE (< 500 ng/mL); Methadone Urine VISTA NEGATIVE (< 300 ng/mL); PCP Urine VISTA NEGATIVE (< 25 ng/mL); THC Urine VISTA NEGATIVE (< 50 ng/mL); Vista UDS pH Range 6
[2020-02-08 18:32] LABS: Chlamydia Trachomatis by PCR Negative (Negative); Neisserai gonorrhoeae by PCR Negative (Negative); Probe Check PASS; Sample Adequacy Control PASS; Specimen Processing Control PASS
[2020-02-10 09:31] LABS: HIV - WCH Non-Reactive (Nonreactive); Hepatitis B Surface Antigen Non-Reactive (Nonreactive); Hepatitis C Antibody Non-Reactive (Nonreactive); Rubella IgG 310.7 IU/mL
[2020-02-10 20:07] LABS: Dilute Prothrombin Time (dPT) 26.2 sec (0.0-55.0); Dilute Russell Viper Venom 38.7 sec (0.0-47.0); PTT-LA 45.4 sec (0.0-51.9); Thrombin Time 18.1 sec (0.0-23.0); dPT Confirm Ratio 1.25 Ratio (0.00-1.40)
[2020-02-11 04:49] LABS: Anti-Cardiolipin Ab, IgA, Qn < 9 APL U/mL (0-11); Anti-Cardiolipin Ab, IgG, Qn < 9 GPL U/mL (0-14); Anti-Cardiolipin Ab, IgM, Qn < 9 MPL U/mL (0-12); Beta-2-Glycoprotein I IgA <9 (0-25); Beta-2-Glycoprotein I IgG <9 (0-20); Beta-2-Glycoprotein I IgM <9 (0-32); Interpretation Comment: (.)
[2020-02-15 02:00] LABS: Rapid Plasmin Reagin (RPR) NONREACTIVE (NONREACTIVE)
== END ==
PROVIDERS: PCP Nurse Practitioner; Referring Provider Obstetrics & Gynecology; Visit Provider Obstetrics & Gynecology
DX: O10.919 Unspecified pre-existing hypertension complicating pregnancy, unspecified trimester (principal); O09.90 Supervision of high risk pregnancy, unspecified, unspecified trimester; Z87.59 Personal history of other complications of pregnancy, childbirth and the puerperium; Z3A.00 Weeks of gestation of pregnancy not specified
CPT/HCPCS: 36415; 80053; 80307; 82570; 82950; 84156; 85025; 86146; 86147; 86592; 86703; 86762; 86803; 86850; 86900; 86901; 87086; 87340; 87491; 87591

== ENCOUNTER → 2020-03-07 09:05 | Outpatient (CLI) | payer OTHER, SELFPAY ==
[2020-03-06 13:39] VITALS: BMI 35.1
== END ==
PROVIDERS: PCP Nurse Practitioner
DX: Z11.59 Encounter for screening for other viral diseases (principal)
CPT/HCPCS: 87635; 94799; U0003

== ENCOUNTER → 2020-04-30 10:51 | Outpatient (CLI) | payer OTHER, SELFPAY ==
[2020-04-30 10:36] VITALS: BMI 36.0
[2020-04-30 11:10] LABS: Potassium 3.5 mmol/L (3.5-5.1)
== END ==
PROVIDERS: PCP Nurse Practitioner; Referring Provider Nurse Practitioner Women's Health; Visit Provider Nurse Practitioner Women's Health
DX: E87.6 Hypokalemia (principal)
CPT/HCPCS: 36415; 84132

== ENCOUNTER → 2020-05-07 11:10 | Outpatient (CLI) | payer OTHER, SELFPAY ==
[2020-04-30 10:36] VITALS: BMI 36.0
--- NOTE | 2020-05-07 11:11 | US_ITS ---
STUDY: SECOND AND THIRD TRIMESTER OBSTETRICAL ULTRASOUND - LIMITED REASON FOR EXAM: Female, 35 years old F/U HEART AND PROFILE Limited examination. LMP: 12/02/2019 PRIOR ULTRASOUND: None. TECHNIQUE: Transabdominal TECHNICAL QUALITY: Adequate. FINDINGS: There is a single intrauterine fetus. The fetus is in an oblique presentation with the head on the maternal right side. There is demonstrated cardiac activity with a heart rate of 152 bpm. The placenta is posterior in location and is not low lying. There are Grade 0 placental changes. The cervix measures 3.1 cm in length. No cardiac abnormality seen on this examination. US/OB Limited (No Biometrics) IMPRESSION: No cardiac abnormality is seen on this examination. Electronically Signed: Khang Rivera, at 8:35 EDT , Service support ,
== END ==
PROVIDERS: PCP Nurse Practitioner; Referring Provider Obstetrics & Gynecology; Visit Provider Obstetrics & Gynecology
DX: O36.8990 Maternal care for other specified fetal problems, unspecified trimester, not applicable or unspecified (principal); Z3A.00 Weeks of gestation of pregnancy not specified
CPT/HCPCS: 76815

== ENCOUNTER → 2020-05-29 10:22 | Outpatient (CLI) | payer OTHER, SELFPAY ==
[2020-05-29 09:40] VITALS: BMI 36.4
[2020-05-29 11:12] LABS: Glucose Challenge Gest 1H 50g 150 mg/dL (70-140)
[2020-05-29 11:13] LABS: Absolute Lymphocyte Count 1.53 X10^3/uL (0.83-4.51); Basophil# 0.02 X10^3/uL; Basophil% 0.2 % (0-1); Eosinophil# 0.08 X10^3/uL; Eosinophils% 0.9 % (0-5); Hematocrit 33.3 % (37-47); Hemoglobin 10.9 g/dL (12.0-15.0); Lymphocyte # 1.53 X10^3/ul (4.0); Mean Corp Hgb Conc 32.7 g/dL (32-36); Mean Corpuscular Hgb 28.2 pg (27.0-32.0); Mean Corpuscular Volume 86.3 fL (81-99); Mean Platelet Vol. 8.4 fl (6.2-12.0); Monocyte# 0.38 X10^3/uL; Monocyte% 4.2 % (0-10); NRBC Flagged by Analyzer 0 % (0-5); Neutrophil # 6.95 X10^3/uL (2.7-7.7); Neutrophil % 77.3 % (47-70); Platelet Count 327 K/mm3 (150-450); RBC Distribution Width CV 13.6 % (11.6-14.6); RBC Distribution Width SD 42.2 fl (35.1-43.9); Red Blood Count 3.86 M/mm3 (4.2-5.4)
== END ==
PROVIDERS: PCP Nurse Practitioner; Referring Provider Obstetrics & Gynecology; Visit Provider Obstetrics & Gynecology
DX: O09.90 Supervision of high risk pregnancy, unspecified, unspecified trimester (principal); Z13.1 Encounter for screening for diabetes mellitus; Z3A.00 Weeks of gestation of pregnancy not specified
CPT/HCPCS: 36415; 82950; 85025

== ENCOUNTER → 2020-06-05 06:46 | Outpatient (CLI) | payer OTHER, SELFPAY ==
[2020-05-29 09:40] VITALS: BMI 36.4
[2020-06-05 07:38] LABS: Glucose GTT-Gestation. Fasting 84 mg/dL (<105)
[2020-06-05 09:21] LABS: Glucose GTT-Gestational 1 Hr 179 mg/dL (<190)
[2020-06-05 10:23] LABS: Glucose GTT-Gestational 2 Hr 160 mg/dL (<165)
[2020-06-05 12:08] LABS: Glucose GTT-Gestational 3 Hr 134 L (<145)
== END ==
PROVIDERS: PCP Nurse Practitioner; Referring Provider Obstetrics & Gynecology; Visit Provider Obstetrics & Gynecology
DX: Z13.1 Encounter for screening for diabetes mellitus (principal)
CPT/HCPCS: 36415; 82951; 82952

== ENCOUNTER 2020-06-25 10:00 | Outpatient (RCR) | payer OTHER, SELFPAY ==
[2020-05-29 09:40] VITALS: BMI 36.4
== END 2020-07-18 23:59 ==
LOC: NS 10:00
PROVIDERS: PCP Nurse Practitioner; Visit Provider Nurse Practitioner Women's Health
DX: O99.210 Obesity complicating pregnancy, unspecified trimester (principal); E66.9 Obesity, unspecified; Z3A.00 Weeks of gestation of pregnancy not specified
CPT/HCPCS: 97802

== ENCOUNTER → 2020-07-11 12:24 | Outpatient (CLI) | payer OTHER, SELFPAY ==
[2020-07-11 11:23] VITALS: BMI 36.6
[2020-07-11 13:49] LABS: Protein, Urine (Random) 81.8 mg/dL (<11.9); Protein:Creat Ratio 247 mg/g CRE (0-200)
== END ==
PROVIDERS: PCP Nurse Practitioner; Referring Provider Obstetrics & Gynecology; Visit Provider Obstetrics & Gynecology
DX: O12.10 Gestational proteinuria, unspecified trimester (principal); Z3A.00 Weeks of gestation of pregnancy not specified
CPT/HCPCS: 82570; 84156

== ENCOUNTER → 2020-07-17 12:22 | Outpatient (CLI) | payer OTHER, SELFPAY ==
[2020-07-11 11:23] VITALS: BMI 36.6
[2020-07-17 09:36] VITALS: BMI 36.6
--- NOTE | 2020-07-17 12:25 | US_ITS ---
STUDY: SECOND AND THIRD TRIMESTER OBSTETRICAL ULTRASOUND - LIMITED REASON FOR EXAM: Female, 35 years old GROWTH LMP: 12/02/2019 PRIOR ULTRASOUND: 05/07/2020 TECHNIQUE: Transabdominal TECHNICAL QUALITY: Adequate. FINDINGS: There is a single intrauterine fetus. The fetus is in a cephalic presentation. There is demonstrated cardiac activity with a heart rate of 143 bpm. There is a normal amniotic fluid volume. The largest amniotic fluid pocket measures 6.0 cm. The amniotic fluid index (ALEXIS) is 14.2 cm. The placenta is fundal in location. There are Grade 3 placental changes. The cervix measures 4.4 cm in length. BIOMETRY: BPD: 8.1 cm: 32 weeks, 3 days HC: 29.3 cm: 32 weeks, 2 days AC: 29.2 cm: 33 weeks, 1 days FL: 6.2 cm: 32 weeks, 0 days Age by LMP: 32 weeks, 4 days. JENN by LMP: 09/07/2020. age by current US: 32 weeks, 1 days. JENN by current US: 09/10/2020. Estimated weight: 2036 grams, +/- 301 grams, 40 percentile. Gender: US/OB Limited With Biometrics IMPRESSION: Living intrauterine of 32 weeks 1 day as described above. Electronically Signed: Luis Armando Wilcox MD at 16:01 EST Tel , Service support ,
== END ==
PROVIDERS: PCP Nurse Practitioner; Referring Provider Obstetrics & Gynecology; Visit Provider Obstetrics & Gynecology
DX: O10.919 Unspecified pre-existing hypertension complicating pregnancy, unspecified trimester (principal); Z3A.00 Weeks of gestation of pregnancy not specified
CPT/HCPCS: 76816; 76817

== ENCOUNTER → 2020-08-08 08:39 | Outpatient (CLI) | payer OTHER, SELFPAY ==
[2020-07-11 11:23] VITALS: BMI 36.6
[2020-07-31 09:36] VITALS: BMI 37.0
--- NOTE | 2020-08-08 08:41 | US_ITS ---
STUDY: SECOND AND THIRD TRIMESTER OBSTETRICAL ULTRASOUND - LIMITED REASON FOR EXAM: Female, 35 years old alexis LMP: 12/02/2019. PRIOR ULTRASOUND: Comparison is made with prior ultrasound dated 07/17/2020. TECHNIQUE: Transabdominal TECHNICAL QUALITY: Adequate. FINDINGS: There is a single intrauterine fetus. The fetus is in a cephalic presentation. There is demonstrated cardiac activity with a heart rate of 153 bpm. There is a normal amniotic fluid volume. The largest amniotic fluid pocket measures 5.1 cm. The amniotic fluid index (ALEXIS) is 13.8 cm. The placenta is posterior in location and is not low lying. There are Grade 3 placental changes. BIOMETRY: Age by LMP: 35 weeks, 5 days. JENN by LMP: 09/07/2020. age by prior US: 35 weeks, 5 days. JENN by prior US: 09/07/2020. US/OB Limited (No Biometrics) IMPRESSION: Normal amniotic fluid. Electronically Signed: Khang Rivera MD at 11:00 EST , Service support ,
== END ==
PROVIDERS: PCP Nurse Practitioner; Referring Provider Obstetrics & Gynecology; Visit Provider Obstetrics & Gynecology
DX: O10.919 Unspecified pre-existing hypertension complicating pregnancy, unspecified trimester (principal); Z3A.00 Weeks of gestation of pregnancy not specified
CPT/HCPCS: 76815

== ENCOUNTER → 2020-08-13 11:10 | Outpatient (CLI) | payer OTHER, SELFPAY ==
[2020-08-08 09:50] VITALS: BMI 37.5
[2020-08-13 11:34] LABS: Absolute Lymphocyte Count 1.13 X10^3/uL (0.83-4.51); Absolute Neutrophil Count 5.3 X10^3/uL (2.0-7.7); Basophil# 0.01 X10^3/uL; Basophil% 0.1 % (0-1); Eosinophil# 0.05 X10^3/uL; Eosinophils% 0.7 % (0-5); Hemoglobin 11.2 g/dL (12.0-15.0); Lymphocyte # 1.13 X10^3/ul (4.0); Lymphocyte % 16.1 % (19-41); Mean Corpuscular Hgb 27.6 pg (27.0-32.0); Mean Corpuscular Volume 86.2 fL (81-99); Mean Platelet Vol. 8.8 fl (6.2-12.0); Monocyte# 0.49 X10^3/uL; NRBC Flagged by Analyzer 0 % (0-5); Neutrophil # 5.33 X10^3/uL (2.7-7.7); Neutrophil % 75.8 % (47-70); Platelet Count 290 K/mm3 (150-450); RBC Distribution Width SD 43.8 fl (35.1-43.9); Red Blood Count 4.06 M/mm3 (4.2-5.4)
[2020-08-13 11:42] LABS: Protein:Creat Ratio 261 mg/g CRE (0-200)
[2020-08-13 11:49] LABS: ALB/GLOB Ratio 0.6 RATIO (0.9-2.4); AST(SGOT) 14 U/L (15-37); Alanine Aminotransfer ALT/SGPT 11 U/L (13-56); Albumin, Serum 2.4 g/dL (3.2-5.0); Alkaline Phosphatase 158 U/L (45-117); Anion Gap 6 (5-15); BUN 8 mg/dL (7-18); BUN/Creat Ratio 13.9 RATIO (10-20); Calcium,Total 8.7 mg/dL (8.5-10.1); Chloride 107 mmol/L (98-107); Creatinine, Serum 0.58 mg/dL (0.55-1.02); EST Glomerular Filtration Rate 128 mL/min (>60); Est Glom Filt Rate - Afr Amer 155 mL/min (>60); Globulin 4.2 g/dL (2.2-4.2); Glucose 107 mg/dL (74-106); Potassium 3.9 mmol/L (3.5-5.1); Protein, Total 6.6 g/dL (6.4-8.2); Sodium Level 138 mmol/L (136-145)
== END ==
PROVIDERS: PCP Nurse Practitioner; Referring Provider Obstetrics & Gynecology; Visit Provider Obstetrics & Gynecology
DX: O16.3 Unspecified maternal hypertension, third trimester (principal); Z3A.00 Weeks of gestation of pregnancy not specified
CPT/HCPCS: 36415; 80053; 82570; 84156; 85025

== ENCOUNTER → 2020-08-13 13:38 | Outpatient (CLI) | payer OTHER, SELFPAY ==
[2020-08-13 11:32] VITALS: BMI 37.8
--- NOTE | 2020-08-13 13:40 | US_ITS ---
STUDY: OBSTETRICAL ULTRASOUND - BIOPHYSICAL PROFILE REASON FOR EXAM: Female, 35 years old BPP. DECREASED MOVEMENT LMP: 12/02/2019. PRIOR ULTRASOUND: Comparison is made with prior examination dated 08/08/2020. TECHNIQUE: Transabdominal TECHNICAL QUALITY: Adequate. FINDINGS: There is a single intrauterine fetus. The fetus is in a cephalic presentation. There is demonstrated cardiac activity with a heart rate of 141 bpm. There is a normal amniotic fluid volume. The largest amniotic fluid pocket measures 5 cm. The amniotic fluid index (ALEXIS) is 15.4 cm. The placenta is posterior in location and is not low lying. There are Grade 3 placental changes. Age by LMP: 36 weeks, 3 days. JENN by LMP: 09/07/2020. age by prior US: 36 weeks, 3 days. JENN by prior US: 09/07/2020. BIOPHYSICAL PROFILE: Breathing Movements (FBM): 2 Gross Body Movements (GBM): 2 Tone (FT): 2 Amniotic Fluid Volume (AFV): 2 TOTAL SCORE: 8 / 8 US/Biophysical Prof W/O Non Stres IMPRESSION: Normal biophysical profile of 8/8. Electronically Signed: Khang Rivera MD at 14:31 EST , Service support ,
== END ==
PROVIDERS: PCP Nurse Practitioner; Visit Provider Obstetrics & Gynecology
DX: O36.8190 Decreased fetal movements, unspecified trimester, not applicable or unspecified (principal); Z3A.00 Weeks of gestation of pregnancy not specified
CPT/HCPCS: 76819

== ENCOUNTER 2020-08-16 21:50 | Inpatient (IN) | payer OTHER, SELFPAY ==
[2020-07-17 09:36] VITALS: BMI 36.6
[2020-08-08 09:50] VITALS: BMI 37.5
[2020-08-16 10:17] VITALS: BMI 37.8
--- NOTE | 2020-08-16 11:24 | US_ITS ---
STUDY: SECOND AND THIRD TRIMESTER OBSTETRICAL ULTRASOUND - LIMITED REASON FOR EXAM: Female, 35 years old GROWTH. CHRONIC HYPERTENSION LMP: 12/01/2020 PRIOR ULTRASOUND: Comparison is made with prior study dated 08/13/2020. TECHNIQUE: Transabdominal TECHNICAL QUALITY: Adequate. FINDINGS: There is a single intrauterine fetus. The fetus is in a cephalic presentation. There is demonstrated cardiac activity with a heart rate of 158 bpm. There is a normal amniotic fluid volume. The largest amniotic fluid pocket measures 6.1 cm. The amniotic fluid index (ALEXIS) is 14.5 cm. The placenta is posterior in location and is not low lying. There are Grade 3 placental changes. BIOMETRY: BPD: 8.79 cm: 35 weeks, 3 days HC: 32.77 cm: 37 weeks, 1 days AC: 32.56 cm: 36 weeks, 3 days FL: 7.14 cm: 36 weeks, 3 days Age by LMP: 36 weeks, 6 days. JENN by LMP: 09/07/2020. age by prior US: 36 weeks, 6 days. JENN by prior US: 09/07/2020. age by current US: 36 weeks, 2 days. JENN by current US: 09/11/2019. Estimated weight: 2944 grams, +/- 442 grams, 45 percentile. US/OB Limited With Biometrics IMPRESSION: Single live intrauterine gestation with a mean gestational age of 36 weeks and 6 days. Electronically Signed: Khang Rivera MD at 7:42 EST , Service support ,
[2020-08-16 20:57] VITALS: O2SAT 98
[2020-08-16 20:58] VITALS: BP 126/82; PULSE 100
[2020-08-16 21:01] VITALS: TEMP 36.9
[2020-08-16 21:27] VITALS: BMI 37.5
[2020-08-16 21:44] LABS: ROM Internal Control Test YES-OK TO RESULT pt. (Internal QC)
[2020-08-16 21:45] LABS: ROM Patient Test POSITIVE (Negative)
[2020-08-16] MEDS: Lactated Ringers 1,000 ML 999 ML IV (22:35)
[2020-08-16] MEDS: Betamethasone/Betamethasone 30 MG/5 ML Vial 12 MG IM (23:02)
[2020-08-16 23:03] LABS: Absolute Lymphocyte Count 1.55 X10^3/uL (0.83-4.51); Basophil# 0.03 X10^3/uL; Basophil% 0.3 % (0-1); Eosinophil# 0.09 X10^3/uL; Hematocrit 37.6 % (37-47); Hemoglobin 12.3 g/dL (12.0-15.0); Lymphocyte # 1.55 X10^3/ul (4.0); Lymphocyte % 16.7 % (19-41); Mean Corp Hgb Conc 32.7 g/dL (32-36); Mean Corpuscular Hgb 27.8 pg (27.0-32.0); Mean Corpuscular Volume 84.9 fL (81-99); Mean Platelet Vol. 8.8 fl (6.2-12.0); Monocyte# 0.52 X10^3/uL; Monocyte% 5.6 % (0-10); NRBC Flagged by Analyzer 0 % (0-5); Neutrophil # 7.03 X10^3/uL (2.7-7.7); Platelet Count 312 K/mm3 (150-450); RBC Distribution Width CV 13.8 % (11.6-14.6); RBC Distribution Width SD 42.4 fl (35.1-43.9); Red Blood Count 4.43 M/mm3 (4.2-5.4); White Blood Count 9.3 K/mm3 (4.4-11.0)
[2020-08-16 23:06] VITALS: BP 135/66; PULSE 80; RESP 14; TEMP 37.1; O2SAT 99
[2020-08-16 23:07] VITALS: BP 135/66; PULSE 87; TEMP 37.1
--- NOTE | 2020-08-16 23:07 | PCM.HPOB.BLA ---
- Problem List (1) premature rupture of membranes Status: Acute (2) 35 weeks gestation of Status: Acute Comment: electronic covid test ordered 07/25/20 (scheduled for 08/20/20 at 0955) (3) Abnormal glucose affecting Status: Acute Comment: nl 3gtt (4) Anemia affecting Status: Acute Comment: iron added (5) Anxiety Status: Acute Comment: declined meds, encouraged counseling (6) H/O severe pre-eclampsia Status: Acute Comment: delivery at 33 weeks, APL negative (7) Influenza vaccine administered Status: Acute Comment: 04/04/2020sc (8) Obesity affecting Status: Acute Comment: 1 tm glucola. encouraged healthy weight gain. (9) Status: Acute Qualifiers: Comment: genetic, carrier, and ntd screening declined. False positive urine drug screen due to Labetalol. Anatomy normal FU in 2 wks for additional views. normal FU, growth nl (10) S/P Status: Acute Comment: severe preeclampsia, breech. plan RLTCS and BS with , 08/27 @ 7:30 scheduled (11) Supervision of high-risk Status: Acute Qualifiers: Comment: PRRn JENN 09/07/20 Girl - Joycelyn, PC Phi, Will (12) Tobacco use affecting , antepartum Status: Acute Comment: encouraged cessation (13) Chronic hypertension affecting Status: Chronic Comment: labetalol 200 BID - decreased to 100 BID 05/29 due to symptomatic low BPs. baseline labs ordered. home bp monitoring, discussed and plan growth us at 32 weeks and weekly nsts 32 weeks on. deliver at 38 weeks. 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: No Is patient in pain?: No Allergies No Known Allergies Allergy (Verified 08/16/20 10:17) Medications prenat.vits,duyen,xzy-qbch-yikii 1 tab PO DAILY 03/05/20 [History Confirmed 08/16/20] loratadine 10 mg tablet 10 mg PO DAILY 03/06/20 [History Confirmed 08/16/20] labetalol 100 mg tablet 100 mg PO BID #60 tab 05/29/20 [Rx Confirmed 08/16/20] Last Menstral Period: 11/24/19 Zika: Zika virus screening: Negative : No PFSH PFSH Medical History Chronic hypertension affecting (Chronic) Fibromyalgia (Chronic) IBS (irritable bowel syndrome) (Chronic) Psoriatic arthritis (Chronic) Surgical History S/P (Acute) H/O colonoscopy (Resolved) H/O esophagogastroduodenoscopy (Resolved) [place] teeth extracted (Resolved) Family History Sister CVA (cerebral vascular accident) Mother Myocardial infarction Father Irregular heart rate Social History (Updated 08/16/20 @ 10:[address] 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 Date Name GA/Weeks Outcome Route Bth Weight Infant Gen Labor Lgth Anesthesia Del Locatn Provider FOB 01/09/19 Phi 33 live - 4lbs 7oz Male spinal [facility] Delivery Date: 01/09/19 cHTN, Severe pre elampsia Kali,Danay HPI 37 WK OB/NST: Details: KATIE POWERS is a 35 year old who presents for routine OB visit. OB Visit JENN Calculator Estimated Delivery Date Method Current WG Current Estimate 09/07/20 Ultrasound #1 36w 6d Other Estimates 08/30/20 LMP (Certain) 38w 0d Expected Delivery Route/Plan RCD with BTL with SM at 38 weeks Labor Preferences- : [] PP control planned: tubal ligation special requests: [] Specific Issue/Plans flu vaccine: 03/2020 tdap vaccine: 06/27 rhogam: NA LARC form signed: 06/27 movement and labor precautions reviewed. Problem list reviewed and updated with the most current plan of care details and appropriate orders placed. Relevant counseling for the gestational age provided. Continue routine care and follow up unless otherwise noted in visit notes/problem list details Initial Weight: 193 lb Date EGA Weight BP Urine Prot Glucose FHR FuHt Pres Dilation Effaced St Visit Note 02/08/20 9w 5d 193 lb (+0 oz) 118/78 185 SM- CRL- 2.67cm not cons with lmp 03/06/20 13w 4d 192 lb (-16 oz) 104/80 Trace Negative 04/04/20 17w 5d 194 lb 2 oz (+1 lb 2 oz) 128/74 Negative Negative 155 GP - no cramping or bleeding. Flu today. Anatomy scheduled 04/1504/30/20 21w 3d 197 lb (+4 lb) 122/62 Negative Negative 154 MH-NO VB, LOF. Anatomy US needs repeat to complete views. Concerned with cost. 05/29/20 25w 4d 199 lb 6 oz (+6 lb 6 oz) 116/68 Negative Negative 155 25 GP - no LOF, VB, DFM, ctx. Having symptomatic low BPs on labetalol 200 BID - dose decreased to 100mg BID. GCT and CBC today. 06/27/20 29w 5d 200 lb (+7 lb) 110/50 Trace Negative 155 29 GP - no LOF, VB, DFM, ctx. Failed 1h GCT but passed 3h. TDAP today. 07/11/20 31w 5d 200 lb (+7 lb) 132/82 150 32 SM- no vb lof good fm no regular ctx. 07/17/20 32w 4d 200 lb (+7 lb) 110/60 Trace Negative 150 MH-reactive NST only 07/26/20 33w 6d 202 lb (+9 lb) 116/60 Negative Negative 150 Sm- no vb lof good fm no regular ctx sinus symptoms amoxicillin 07/31/20 34w 4d 202 lb 6 oz (+9 lb 6 oz) 120/68 Negative Negative NST only reactive. MH 08/08/20 35w 5d 205 lb (+12 lb) 110/80 Negative Negative 140 SM- n ovb lof good fm no regular ctx 08/16/20 36w 6d 207 lb (+14 lb) 112/80 140 SM- no vb lof good fm no regular ctx. gbs today ACOG First Trimester First Trimester: Diagnostics Diagnostics Diagnostics Hgb 11.2 g/dL (12.0-15.0) L 08/13/20 Hct 35.0 % (37-47) L 08/13/20 Details: HIV: Urine Culture: Sequential Screen: NIPT Screen: Office Procedures OB NST Non-Stress Test Indications for Monitoring: Yes hypertension Heart Rate Baseline: 140 Heart Rate Variability: moderate Movement: Present Heart Rate Accelerations: Present Decelerations: Absent Contractions: Absent Impression: Yes Reactive Non-Stress Test Category 1 Assessment & Plan Problems 1. 35 weeks gestation of Z3A.35 electronic covid test ordered 07/25/20 (scheduled for 08/20/20 at 0955) 2. Chronic hypertension affecting O10.919 labetalol 200 BID - decreased to 100 BID 05/29 due to symptomatic low BPs. baseline labs ordered. home bp monitoring, discussed and plan growth us at 32 weeks and weekly nsts 32 weeks on. deliver at 38 weeks. 81 mg asa 3. Abnormal glucose affecting O99.810 nl 3gtt 4. Obesity affecting O99.210 1 tm glucola. encouraged healthy weight gain. 5. Anemia affecting O99.019 iron added 6. S/P Z98.891 severe preeclampsia, breech. plan RLTCS and BS with MIRIAM 08/27 @ 7:30 scheduled 7. Tobacco use affecting , antepartum O99.330 encouraged cessation 8. 25 weeks gestation of Z3A.25 genetic, carrier, and ntd screening declined. False positive urine drug screen due to Labetalol. Anatomy normal FU in 2 wks for additional views. normal FU, growth nl 9. H/O severe pre-eclampsia Z87.59 delivery at 33 weeks, APL negative 10. Anxiety F41.9 declined meds, encouraged counseling 11. Influenza vaccine administered Z23 04/04/2020sc 12. Supervision of high risk in second trimester O09.92 PRRn JENN 09/07/20 Girl - PIPPA Hirsch, Will Patient presents for premature rupture of membranes at 36/6 Plan repeat with tubal ligation Pain management: Per anesthesia. GBS unknown Management of any complications: None I have reviewed the PFSH and made any clinically relevant updates.
--- NOTE | 2020-08-16 23:10 | OP.PCM_ITS ---
Problem List (1) premature rupture of membranes Status: Acute (2) 35 weeks gestation of Status: Acute Comment: electronic covid test ordered 07/25/20 (scheduled for 08/20/20 at 0955) (3) Abnormal glucose affecting Status: Acute Comment: nl 3gtt (4) Anemia affecting Status: Acute Comment: iron added (5) Anxiety Status: Acute Comment: declined meds, encouraged counseling (6) H/O severe pre-eclampsia Status: Acute Comment: delivery at 33 weeks, APL negative (7) Influenza vaccine administered Status: Acute Comment: 04/04/2020sc (8) Obesity affecting Status: Acute Comment: 1 tm glucola. encouraged healthy weight gain. (9) Status: Acute Qualifiers: Comment: genetic, carrier, and ntd screening declined. False positive urine drug screen due to Labetalol. Anatomy normal FU in 2 wks for additional views. normal FU, growth nl (10) S/P Status: Acute Comment: severe preeclampsia, breech. plan RLTCS and BS with , 08/27 @ 7:30 scheduled (11) Supervision of high-risk Status: Acute Qualifiers: Comment: PRRn JENN 09/07/20 Girl - Joycelyn, PC Phi, Will (12) Tobacco use affecting , antepartum Status: Acute Comment: encouraged cessation (13) Chronic hypertension affecting Status: Chronic Comment: labetalol 200 BID - decreased to 100 BID 05/29 due to symptomatic low BPs. baseline labs ordered. home bp monitoring, discussed and plan growth us at 32 weeks and weekly nsts 32 weeks on. deliver at 38 weeks. 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 Patient has a history of a and declines trial of labor. Plan for repeat with tubal ligation. The risks, benefits, indications, and alternatives to the procedure were discussed with the patient including bleeding, infection, and visceral vascular injury. The patient was on her prescription standing and agreed to proceed. Indications for : Repeat Elective , Desires elective sterilization Description of Procedure: The patient is a G2, P1 at 36 weeks 6 days presented for repeat . Spinal anesthesia was placed without difficulty. Vasquez catheter was placed. The patient was placed in the dorsal supine position with leftward tilt. Patient was prepped and draped in the normal sterile fashion. Pfannenstiel skin incision was made with the scalpel and carried through to the underlying layer of fascia with the scalpel. Fascia was nicked in the midline and the incision extended laterally. The rectus bellies were dissected off superiorly and inferiorly with out complication both sharply and bluntly. The peritoneum was entered digitally. The incision was stretched and a low transverse uterine incision was made with the scalpel. The infant's head was delivered atraumatically followed by the anterior and posterior shoulders without complication the rest of the infant delivered. The cord was clamped and cut and the was handed off to awaiting nurse. The placenta was delivered spontaneously immediately following and was noted to be intact and have a three- vessel cord. The uterus was exteriorized cleared of all clots and debris, and the incision was closed in a double layer closure using #1 Monocryl. The ovaries and fallopian tubes were noted to be within normal limits. The tubes were grasped and elevated with Michele clamps. The large LigaSure device was used to cauterize and transect the mesosalpinx bilaterally. The tubes were then cauterized and amputated. Hemostasis was noted. The uterus was returned to the maternal abdomen and gutters were cleared of all clots and debris. The peritoneum was closed with 3-0 Monocryl in a running fashion. Gloves were changed prior to fascial closure. Fascia was closed with 0 PDS in a running fashion. Subcutaneous tissue was copiously irrigated and the skin was closed with 3-0 Monocryl in a subcuticular fashion. Mepilex dressing was applied without complication. Patient was taken to recovery in stable condition. Amniotic Membrane Rupture Type: Spontaneous Amniotic Fluid Description: Clear Placenta Disposition: [facility] Drain: [place] to straight drain Fluids Replaced: 1200 Cord Entanglement: None Cord Vessel Description: 3 Vessels Esitmated Blood Loss (ml): 500 Infant Gender: Female Antibiotic Given: Ancef 2 grams IV x1, Zithromax 500 mg/5 mL X1 Pt instructed on risks of surgery: Bleeding, Anesthesia Risks, Infection, Need for Future C-Sections, Permanency, Failure Rate of 1 to 2%, Injury to surrounding structure(s) including bowel and bladder Complications: None - Admit VTE Documentation VTE Present on Admission: No VTE Mechan Device Prophylaxis: SCD's VTE Pharm Prophylaxis ordered?: Yes Multi Select Codes - Urinary/Genital Urinary/Genital CPT Codes: 59135 C/S+TL
--- NOTE | 2020-08-16 23:14 | DCINST_ITS ---
Discharge Diet: No Restrictions Discharge Activity: May Not Drive - for 2 weeks or while taking narcotic pain meds., May Shower, May Take a Tub Bath - in 7 days. May resume sexual activity in: 4-6 weeks Lifting Restrictions: 20 pounds Additional Activity Instructions:: Nothing in the vagina for 4-6 weeks. You may return to work/school in 6 weeks. Call your doctor if your incision/area has: Continuous Slow Oozing, Sudden Increased Bleeding, Increased Pain/ Swelling, Increased Redness, Foul Smelling Discharge Call your doctor if you observe: Fever of 101 or Higher Suture Line Care: Avoid Pulling/Pushing, Avoid Pinching/Bending Additional Instructions: If you experience any of the following, contact your healthcare provider. * Bleeding that soaks a pad every hour for 2 hours * Fever 100.4 or higher * Unrelieved incision or abdominal pain * Swelling, redness, discharge or bleeding from your incision or episiotomy site * Your incision begins to separate * Problems urinating (including inability to urinate or burning while urinating). * Visual changes * Severe headache * Flu-like symptoms * Pain or redness in one of both of your breasts * Pain, warmth, tenderness or swelling in your legs, especially the calf area * Frequent nausea and vomiting * Symptoms of depression or anxiety If you experience any of the following, call 911 or go to the nearest Emergency Room. * Chest pain * Problems breathing * Seizure activity * Partial or complete paralysis of a body part, slurred speech, weakness or drooping of the face, or a sudden inability to walk or hold your balance Allergies/Adverse Reactions: Allergies No Known Allergies Allergy (Verified 08/16/20 10:17) Medications to take at Discharge prenat.vits,duyen,hfv-daan-sejlk 1 tab PO DAILY 03/05/20 loratadine 10 mg tablet 10 mg PO DAILY 03/06/20 Labetalol HCl 100 mg PO BID 08/16/20 Follow-Up: Call to make an appointment with your doctor for an incision check in 1-2 weeks. You will also need a 6 week post- follow up appointment. Test results from this visit will be discussed in further detail at your follow- up appointment, if applicable. Primary Care Physician: Nakia Peterson NP, DRYWALL HANGER-C [Primary Care Provider] -
--- NOTE | 2020-08-16 23:14 | PCM.DCCSEC ---
Discharge Diet: No Restrictions Discharge Activity: May Not Drive - for 2 weeks or while taking narcotic pain meds., May Shower, May Take a Tub Bath - in 7 days. May resume sexual activity in: 4-6 weeks Lifting Restrictions: 20 pounds Additional Activity Instructions:: Nothing in the vagina for 4-6 weeks. You may return to work/school in 6 weeks. Call your doctor if your incision/area has: Continuous Slow Oozing, Sudden Increased Bleeding, Increased Pain/ Swelling, Increased Redness, Foul Smelling Discharge Call your doctor if you observe: Fever of 101 or Higher Suture Line Care: Avoid Pulling/Pushing, Avoid Pinching/Bending Additional Instructions: If you experience any of the following, contact your healthcare provider. Bleeding that soaks a pad every hour for 2 hours Fever 100.4 or higher Unrelieved incision or abdominal pain Swelling, redness, discharge or bleeding from your incision or episiotomy site Your incision begins to separate Problems urinating (including inability to urinate or burning while urinating). Visual changes Severe headache Flu-like symptoms Pain or redness in one of both of your breasts Pain, warmth, tenderness or swelling in your legs, especially the calf area Frequent nausea and vomiting Symptoms of depression or anxiety If you experience any of the following, call 911 or go to the nearest Emergency Room. Chest pain Problems breathing Seizure activity Partial or complete paralysis of a body part, slurred speech, weakness or drooping of the face, or a sudden inability to walk or hold your balance Allergies/Adverse Reactions: Allergies No Known Allergies Allergy (Verified 08/16/20 10:17) Medications to take at Discharge prenat.vits,duyen,cwr-amik-aisvp 1 tab PO DAILY 03/05/20 loratadine 10 mg tablet 10 mg PO DAILY 03/06/20 Labetalol HCl 100 mg PO BID 08/16/20 Follow-Up: Call to make an appointment with your doctor for an incision check in 1-2 weeks. You will also need a 6 week post- follow up appointment. Test results from this visit will be discussed in further detail at your follow-up appointment, if applicable. Primary Care Physician: Nakia Peterson NP, BROADCAST CHECKER-C [Primary Care Provider] -
[2020-08-16 23:17] VITALS: BP 133/70; PULSE 81; TEMP 36.6
[2020-08-17] VITALS (22 sets, daily range): BP systolic 96–135; BP diastolic 46–75; PULSE 60–86; RESP 11–20; TEMP 35.8–36.8; O2SAT 93–100
--- NOTE | 2020-08-17 | FALS_PTH ---
PATIENT: KATIE POWERS LOC: [facility] U#:[id number] AGE/SX: 35/F [facility]: Dr. Niurka Vidal MD : 1985 BED: 1 DIS: 08/18/2020 SPEC #: [id number] RECD: 08/17/20 10:42 STATUS: NILESH RECesar #: [id number] JOLENE: 08/17/20 00:[address]: Niurka Vidal DEPT: SURGICAL PATHOLOGY RECD BY: Silvino Gonzalez ENTERED: 08/19/20 10:56 SP TYPE: FALL TUBES OTHR DR: MD Nakia Velarde, GENERAL SURGERY PHYSICIAN ASSISTANT-C Tissues: Fallopian tube Procedures: Surgery Specimen Level II HEADER OPERATION: Tubal ligation PRE-OP DIAGNOSIS: Sterilization TISSUE SUBMITTED: Fallopian tubes MICROSCOPIC DIAGNOSIS Right and left fallopian tubes, bilateral salpingectomies: Two complete segments of fallopian tubes with no pathologic change. AM:matthew 08/20/2020 MICROSCOPIC DESCRIPTION Slides are reviewed. GROSS DESCRIPTION Received in fixative is one container labeled with the patient's name and designated bilateral fallopian tubes. The specimen consists of two fallopian tubes with an average length of 6 cm and has an average diameter of 0.7 cm. Both fallopian tubes have normal fimbriated ends. No mass lesions are identified. Sec Reporting Consultant sections are submitted in two cassettes as follows: 1 - one fallopian tube, 2 - the other fallopian tube. / AM:matthew 08/19/20 TC:4 CPT: 38645 x2
[2020-08-17] MEDS: Acetaminophen 500 MG Tablet 1000 MG PO ×4 (01:35→19:26)
[2020-08-17] MEDS: Sodium Citrate/Citric Acid 30 ML UDC PO (01:35)
[2020-08-17] MEDS: Cefazolin 2 GM in 0.9% Normal Saline 100 ML IV (01:49)
[2020-08-17] MEDS: Oxytocin 30 units/NS 500 ml 30 UNITS/500 ML IV.SOLN 167 UNITS IV (03:15)
[2020-08-17] MEDS: Lactated Ringers 1,000 ML 100 ML IV (06:31)
[2020-08-17] MEDS: Ketorolac 30 MG/ML Syringe IV ×3 (10:09→22:33)
[2020-08-17] MEDS: Labetalol 100 MG Tablet PO ×2 (10:10→22:33)
[2020-08-17] MEDS: 0.9% Saline Lock 10 ML Syringe IV ×3 (10:12→22:34)
[2020-08-17] MEDS: Enoxaparin 40 MG/0.4 ML Syringe SC (16:26)
[2020-08-18 01:00] VITALS: BP 108/66; PULSE 78; RESP 18; TEMP 36.6
[2020-08-18] MEDS: Acetaminophen 500 MG Tablet 1000 MG PO ×2 (01:38→08:58)
[2020-08-18] MEDS: Ketorolac 30 MG/ML Syringe IV (04:45)
[2020-08-18] MEDS: 0.9% Saline Lock 10 ML Syringe IV (04:46)
[2020-08-18 05:08] LABS: Hematocrit 30.6 % (37-47); Hemoglobin 10.1 g/dL (12.0-15.0); Mean Corpuscular Hgb 28.2 pg (27.0-32.0); Mean Corpuscular Volume 85.5 fL (81-99); Mean Platelet Vol. 8.9 fl (6.2-12.0); Platelet Count 303 K/mm3 (150-450); RBC Distribution Width CV 13.8 % (11.6-14.6); RBC Distribution Width SD 43.1 fl (35.1-43.9); Red Blood Count 3.58 M/mm3 (4.2-5.4); White Blood Count 11.1 K/mm3 (4.4-11.0)
--- NOTE | 2020-08-18 06:55 | PCM.PN.OB ---
Patient Problems: Active and Suspected Problems (Last Reviewed 08/16/20 @ 10:18 by Lorraine Harman) premature rupture of membranes (Acute) 35 weeks gestation of (Acute) electronic covid test ordered 07/25/20 (scheduled for 08/20/20 at 0955) Anemia affecting (Acute) iron added Abnormal glucose affecting (Acute) nl 3gtt Influenza vaccine administered (Acute) 04/04/2020sc (Acute) genetic, carrier, and ntd screening declined. False positive urine drug screen due to Labetalol. Anatomy normal FU in 2 wks for additional views. normal FU, growth nl Supervision of high-risk (Acute) PRRn JENN 09/07/20 Girl - Joycelyn, PC Phi, Will Obesity affecting (Acute) 1 tm glucola. encouraged healthy weight gain. H/O severe pre-eclampsia (Acute) delivery at 33 weeks, APL negative Tobacco use affecting , antepartum (Acute) encouraged cessation S/P (Acute) severe preeclampsia, breech. plan RLTCS and BS with , 08/27 @ 7:30 scheduled Anxiety (Acute) declined meds, encouraged counseling Subjective: Patient doing well without complaints. Tolerating PO. Ambulating and voiding without difficulty. feeding well. Denies chest pain, shortness of breath, calf pain/swelling, fevers, chills, lightheadedness. - Physical Exam Vitals/I&O's: Vital Signs Temp Pulse Resp BP Pulse Ox 97.8 F 78 18 108/66 98 08/18/20 01:00 08/18/20 01:00 08/18/20 01:00 08/18/20 01:00 08/17/20 16:11 Oxygen Delivery Method Room Air Weight: 205 lb 0.478 oz Body Mass Index (BMI) 37.5 Intake and Output for Last 24 Hours 08/16/20 08/17/20 08/18/20 23:59 23:59 23:59 Intake Total 999 / 999 1970.67 / 1970.67 Output Total 1050 / 1050 400 / 400 Balance 999 / 999 920.67 / 920.67 -400 / -400 General: Alert, Oriented x3 Microbiology Past 72 Hours 08/16/20 23:45 Mucosa - Nose SARS-CoV-2 Antigen (Rapid) - Final Laboratory Results 08/18/20 04:55: WBC 11.1 H, RBC 3.58 L, Hgb 10.1 L, Hct 30.6 L, MCV 85.5, MCH 28.2, MCHC 33.0, RDW Std Deviation 43.1, RDW Coeff of Lily 13.8, Plt Count 303, MPV 8.9 Current Medications Acetaminophen (Acetaminophen 500 Mg Tablet) 1,000 mg PO Q6H [facility] Last Admin: 08/18/20 01:38 Dose: 1,000 mg Documented by: Bisacodyl (Bisacodyl 10 Mg Suppository) 10 mg RECTAL UD PRN PRN Reason: If no BM Enoxaparin Sodium (Enoxaparin 40 Mg/0.4 Ml Syringe) 40 mg SC DAILY [facility] Last Admin: 08/17/20 16:26 Dose: 40 mg Documented by: Hydrocortisone (Hydrocortisone 2.5% Crm) 1 applic TOPICAL TID PRN PRN; Protocol PRN Reason: Discomfort Ibuprofen (Ibuprofen 600 Mg Tablet) 600 mg PO Q6H [facility] Last Admin: 08/18/20 05:55 Dose: Not Given Documented by: Labetalol HCl (Labetalol 100 Mg Tablet) 100 mg PO BID [facility] Last Admin: 08/17/20 22:33 Dose: 100 mg Documented by: Loratadine (Loratadine 10 Mg Tablet) 10 mg PO DAILY [facility] Last Admin: 08/17/20 10:10 Dose: Not Given Documented by: Methylergonovine Maleate (Methylergonovine 0.2 Mg/Ml Ampul) 0.2 mg IM X1 PRN PRN Reason: Uterine Atony Naloxone HCl (Naloxone 0.4 Mg/Ml Syringe) 0.02 mg IV Q1M PRN PRN Reason: RR <10 and pt unresponsive Ondansetron HCl (Ondansetron 4 Mg/2 Ml Vial) 4 mg IV Q4H PRN PRN PRN Reason: Nausea Oxycodone HCl (Oxycodone 5 Mg Tablet) 5 - 10 mg PO Q4H PRN PRN PRN Reason: Pain Score 4-10 Prochlorperazine Edisylate (Prochlorperazine 10 Mg/2 Ml Vial) 10 mg IV Q6H PRN PRN PRN Reason: NAUSEA Senna/Docusate Sodium (Senna/Docusate Sodium 1 Tablet) 0 tablet PO DAILY [facility] Last Admin: 08/17/20 10:11 Dose: Not Given Documented by: Simethicone (Simethicone 80 Mg Tablet) 80 mg PO [facility]CHS PRN PRN Reason: Indigestion/stomach pain Sodium Chloride (0.9% Saline Lock 10 Ml Syringe) 5 - 15 ml IV UD PRN PRN Reason: SALINE FLUSH Last Admin: 08/18/20 04:46 Dose: 10 ml Documented by: Medical Necessity - Tobacco Use Smoking Status: Current every day smoker Assessment/Plan All Active Problems (Last Reviewed 08/16/20 @ 10:18 by Lorraine Harman) premature rupture of membranes (Acute) 35 weeks gestation of (Acute) Anemia affecting (Acute) Abnormal glucose affecting (Acute) Influenza vaccine administered (Acute) (Acute) Supervision of high-risk (Acute) Obesity affecting (Acute) H/O severe pre-eclampsia (Acute) Tobacco use affecting , antepartum (Acute) S/P (Acute) Anxiety (Acute) Bronchitis (Resolved) Electrocardiogram showing normal sinus rhythm (Resolved) Low serum potassium (Resolved) Psoriatic arthritis (Resolved) Supervision of normal first (Resolved) Wheezing (Resolved) s/p LTCS PPD # 2 1. routine post care 2. breast feeding- support given 3. rh positive 4. rubella immune
[2020-08-18 08:48] VITALS: BP 113/70; PULSE 72; RESP 16; TEMP 36.9; O2SAT 98
[2020-08-20 15:53] LABS: Pathology Specimen OB SEE PATHOLOGY REPORT
== END 2020-08-18 09:35 | disposition home or self-care (01) | DRG 784 ==
LOC: OPUS 21:56 → WP 21:57
PROVIDERS: Admitting Provider Obstetrics & Gynecology; PCP Nurse Practitioner; Referring Provider Obstetrics & Gynecology; Visit Provider Obstetrics & Gynecology
DX: O34.211 Maternal care for low transverse scar from previous cesarean delivery (principal); O10.92 Unspecified pre-existing hypertension complicating childbirth; N85.8 Other specified noninflammatory disorders of uterus; Z3A.37 37 weeks gestation of pregnancy; Z37.0 Single live birth; E66.9 Obesity, unspecified; O99.214 Obesity complicating childbirth; F17.200 Nicotine dependence, unspecified, uncomplicated; O99.334 Smoking (tobacco) complicating childbirth; Z30.2 Encounter for sterilization
CPT/HCPCS: 59025; 59050; 76816; 84112; 85025; 85027; 86850; 86900; 86901; 87081; 87426; 88302; 99218; J7120; A4216; G0378; J0702; J2405